=== PATIENT | female | born 1955 | race Caucasian/White ===

== ENCOUNTER → 2018-07-08 09:21 | Outpatient (CLI) | payer MEDICARE, OTHER, SELFPAY ==
--- NOTE | 2018-07-08 09:30 | XR_ITS ---
XR knee LT 4V HISTORY: Left knee pain ITS.REASON: left knee pain/ weightbearing views ORDERING PHYSICIAN: Max Garner MD PATIENT AGE: 62 years COMPARISON: 09/03/2012 FINDINGS: There are severe osteoarthritic changes of the medial compartment with loss of joint space. There is mild medial subluxation of the tibia of 4 mm. Osteophyte formation noted involving all 3 compartments. No fracture or dislocation. No lytic or blastic change. Moderate osteoarthritis involves patellofemoral joint. Minimal chondrocalcinosis of the lateral meniscus. IMPRESSION: Severe osteoarthritis of the medial compartment with moderate to severe osteoarthritis of the patellofemoral joint. Osteoarthritis has slightly progressed compared to the previous exam
== END ==
PROVIDERS: PCP Internal Medicine Adolescent Medicine; Visit Provider Orthopaedic Surgery
DX: M25.562 Pain in left knee (principal)
CPT/HCPCS: 73564

== ENCOUNTER → 2018-09-02 11:01 | Outpatient (CLI) | payer MEDICARE, OTHER, SELFPAY ==
--- NOTE | 2018-09-02 11:08 | MR_ITS ---
MR lumbar spine wo con, MR 3-d myelogram/MRCP HISTORY: LBP numbness and dill ache radiating down RT leg and hip. X6-8 Months. No trauma. ITS.REASON: LOW BACK PAIN, RADICULAR LEG PAIN ORDERING PHYSICIAN: Juliane Marte PATIENT AGE: 63 years Comparison: None TECHNIQUE: Standard multiplanar multiecho sequences are performed without contrast. 3-D MIP and myelographic images are also rendered and reviewed FINDINGS: There is normal alignment. The spinal cord ends at the L1-L2 level. There is multilevel degenerative disc disease. L1-L2: Degenerative disc disease with bulging disc and facet and ligamentum hypertrophy with bilateral lateral recess narrowing. Type I endplate changes. Broad-based left paracentral and foraminal disc protrusion versus asymmetric bulging disc noted causing left lateral recess and moderate to severe left-sided foraminal narrowing. There are are some cystic changes in the superior endplate of L2. L2-L3: Degenerative disc disease with bulging disc and facet ligamentum flavum hypertrophy with minimal right paracentral disc protrusion with mild bilateral lateral recess and foraminal narrowing. L3-L4: Degenerative disc disease with bulging disc with moderate facet and ligamentum hypertrophy with moderate bilateral lateral recess and foraminal narrowing. There is transverse narrowing of the canal from the facet ligamentum hypertrophy L4-5: Bulging disc along with facet and ligamentum flavum hypertrophy. 3 mm anterolisthesis of L4. There is moderate bilateral lateral recess and foraminal narrowing. Transverse narrowing of the canal at 10 mm. The AP dimension of the canal is 11 mm. L5-S1: Mild facet and ligamentum flavum hypertrophy. Mild bilateral lateral recess and foraminal narrowing. No extruded herniated disc evident. Mild levoscoliosis of the lumbar spine IMPRESSION: Abnormal MRI of the lumbar spine with multilevel lumbar spondylosis with degenerative disc disease along with facet and ligamentum flavum hypertrophy with foraminal lateral recess narrowing. Please see above for detailed description at each level. There is a broad-based left paracentral and foraminal disc protrusion at L1-L2 with foraminal lateral recess narrowing
== END ==
PROVIDERS: PCP Nurse Practitioner Family; Visit Provider Nurse Practitioner Family
DX: M54.5 Low back pain (principal); M54.10 Radiculopathy, site unspecified
CPT/HCPCS: 72148; 76376

== ENCOUNTER → 2019-05-12 09:37 | Outpatient (CLI) | payer MEDICARE, OTHER, SELFPAY ==
--- NOTE | 2019-05-12 09:51 | XR_ITS ---
XR DEXA axial skeleton HISTORY: ITS.REASON: POST MENOPAUSAL ORDERING PHYSICIAN: Juliane Marte APRN PATIENT AGE: 63 years COMPARISON: 09/27/2014 FINDINGS: The BMD measured at the Right femoral neck is 0.962 g/cm squared with a T score of -0.5. This is considered Normal according to the World Health Organization criteria. Fracture risk is Low. Treatment is advised. The L1 L4 density has a T score of 3.2. Lumbar spine density has increased by 2.8%. The hip density has decreased by 3.9%. IMPRESSION: Normal bone density. Low fracture risk. Suggest follow-up exam April 2021
== END ==
PROVIDERS: PCP Internal Medicine Adolescent Medicine; Visit Provider Nurse Practitioner Family
DX: Z13.820 Encounter for screening for osteoporosis (principal); Z78.0 Asymptomatic menopausal state
CPT/HCPCS: 77080

== ENCOUNTER → 2019-07-21 13:15 | Outpatient (CLI) | payer MEDICARE, OTHER, SELFPAY ==
--- NOTE | 2019-07-21 13:19 | XR_ITS ---
PROCEDURE: XR HIP LT 2-3V W/PELVIS CLINICAL INDICATION: left hip pain COMPARISON: No exams were available for comparison FINDINGS: Mild osteoarthritis. No fracture or dislocation. No lytic or blastic change. Coarse calcification is present in the central aspect of the pelvis slightly toward the left consistent with a fibroid. There are degenerative changes in the lower lumbar spine. IMPRESSION: Mild osteoarthritis Fibroid calcification Degenerate disc disease lower lumbar spine Dictated by: Sagar Goncalves MD 07/21/2019 14:20 Electronically signed by Sagar Goncalves MD in [place] 07/21/2019 14:20
--- NOTE | 2019-07-21 13:19 | XR_ITS ---
PROCEDURE: XR HIP RT 2-3V W/PELVIS CLINICAL INDICATION: right hip pain COMPARISON: XR HIP LT 2-3V W/PELVIS from 07/21/2019 FINDINGS: There are mild osteoarthritic changes of the right hip. No fracture or dislocation. No lytic or blastic the change IMPRESSION: Mild osteoarthritis Dictated by: Sagar Goncalves MD 07/21/2019 14:19 Electronically signed by Sagar Goncalves MD in [place] 07/21/2019 14:19
--- NOTE | 2019-07-21 13:19 | XR_ITS ---
PROCEDURE: XR KNEE LT 4V CLINICAL INDICATION: left knee pain COMPARISON: [id number] XR knee LT 4V from 07/08/2018 FINDINGS: No fracture or dislocation. No lytic or blastic change. There is normal mineralization. Severe osteoarthritic changes are present involving the medial compartment and patellofemoral joint with mild osteoarthritis of the lateral compartment. There is chondrocalcinosis of the lateral meniscus. Subarticular cystic changes are present at the medial aspect of the proximal tibia Other findings:None. IMPRESSION: Severe osteoarthritis slightly progressed compared to the previous exam Dictated by: Sagar Goncalves MD 07/21/2019 14:12 Electronically signed by Sagar Goncalves MD in [place] 07/21/2019 14:12
== END ==
PROVIDERS: PCP Internal Medicine Adolescent Medicine; Visit Provider Orthopaedic Surgery
DX: M25.552 Pain in left hip (principal); M25.551 Pain in right hip; M17.12 Unilateral primary osteoarthritis, left knee
CPT/HCPCS: 73502; 73564

== ENCOUNTER → 2019-08-16 14:53 | Outpatient (CLI) | payer MEDICARE, OTHER, SELFPAY ==
[2019-08-16 15:17] LABS: Basophils # 0.1 K/mm3 (0-0.2); Basophils % 0.8 % (0.1-2.0); Eosinophils # 0.1 K/mm3 (0.0-0.4); Eosinophils % 0.7 % (0.1-12.0); Hematocrit 40.3 % (37.0-47.0); Hemoglobin 12.9 g/dL (12.2-16.2); Lymphocytes # 2.5 K/mm3 (0.7-4.5); Lymphocytes % 37.1 % (10-50); Mean Corpuscular HGB Conc 32.1 g/dL (31.8-35.4); Mean Corpuscular Hemoglobin 29.7 pg (27.0-31.2); Mean Corpuscular Volume 92.5 fl (81-99); Mean Platelet Volume 7.5 fl (7.4-10.4); Monocytes # 0.4 K/mm3 (0.1-1.0); Monocytes % 5.7 % (1.7-9.3); Neutrophils # 3.8 K/mm3 (1.8-7.8); Neutrophils % 55.7 % (37.0-80.0); Platelet Count 423 K/mm3 (142-424); Red Blood Count 4.35 M/mm3 (4.20-5.40); Red Cell Distribution Width 13.3 % (11.5-17.5); White Blood Count 6.7 K/mm3 (4.8-10.8)
[2019-08-16 15:54] LABS: Blood Urea Nitrogen 13 mg/dL (7-18); Calcium 9.7 mg/dL (8.5-10.1); Carbon Dioxide 29 mmol/L (21.0-32.0); Chloride 105 mmol/L (98-107); Creatinine,Serum 0.64 mg/dL (0.55-1.02); Estimated Glomerular Filt Rate 94 ml/min (>60); GFR (African American) 114 ML/MIN (>60); Glucose 94 mg/dL (74-106); Sodium 141 mmol/L (136-145)
== END ==
PROVIDERS: Visit Provider Nurse Practitioner Family
DX: M17.12 Unilateral primary osteoarthritis, left knee (principal); I10 Essential (primary) hypertension
CPT/HCPCS: 36415; 80048; 85025

== ENCOUNTER → 2020-05-02 16:08 | Outpatient (POV) | payer MEDICARE, OTHER, SELFPAY | PROVIDERS: PCP Internal Medicine; Visit Provider Dermatology | DX: Z00.00 Encounter for general adult medical examination without abnormal findings (principal) ==

== ENCOUNTER → 2020-05-23 10:41 | Outpatient (POV) | payer MEDICARE, OTHER, SELFPAY | PROVIDERS: PCP Internal Medicine Adolescent Medicine; Visit Provider Dermatology | DX: Z00.00 Encounter for general adult medical examination without abnormal findings (principal) ==

== ENCOUNTER 2020-10-28 18:08 | Emergency (ER) | payer MEDICARE, OTHER, SELFPAY ==
[2020-10-28 18:20] VITALS: BP 148/80; PULSE 81; RESP 20; TEMP 36.8; O2SAT 97; BMI 34.3
--- NOTE | 2020-10-28 18:41 | HMH.EDUTC ---
[facility] [place] Clinical Impression: Exposure to COVID-19 virus Disposition: Home, Self-Care Condition on Discharge: Good Instructions: Preventing the Spread of Coronavirus Discharge Instructions Additional Instructions: Drink plenty of fluids. Take tylenol for pain or fever. Return if you begin to have difficulty breathing. Follow up with your regular doctor. GO TO THE ER FOR ANY WORSENING SYMPTOMS Referrals: Jose Guadalupe Jorgensen MD [Primary Care Provider] - Time of Disposition: 18:56 Medical Decision Making - Medical Records Medical records reviewed: No: I reviewed the patient's medical records. - Flavio Inquiry Pt receiving controlled substance: No Vital Signs: 10/28/20 18:20 10/28/20 18:58 Temperature 98.3 F 98.3 F Temperature Source Oral Pulse Rate 81 Pulse Rate [Left Brachial] 81 Respiratory Rate 20 20 Blood Pressure 148/80 H Blood Pressure [Right Arm] 148/80 H Blood Pressure Mean [Right Arm] 102 Blood Pressure Source [Right Arm] Automatic Cuff Blood Pressure Position Sitting Blood Pressure Position [Right Arm] Sitting 02 Sat by Pulse Oximetry 97 Oxygen Delivery Method Room Air Orders (Tests/Meds): ORDERS Category Date Time Status Covid-19 Nasal PCR ([facility]) Routine Lab 10/28/20 18:23 [place] [facility] [place] - General Stated complaint: COVID TEST Possible exposure Time Seen by Provider: 10/28/20 18:41 Mode of Arrival: Ambulatory Source of Information: Patient Limitations: No Limitations Description of Symptoms (Recalled from Triage Doc. by RN): PATIENT REQUESTING COVID TEST D/T POSSIBLE EXPOSURE; DENIES SYMPTOMS HEENT Symptoms (Recalled from RN notes): No Resp Symptoms (Recalled from RN notes): No Skin Symptoms (Recalled from RN notes): No MS Symptoms (Recalled from RN notes): No Functional Status (Recalled from RN notes): WNL - History of Present Illness Provider Complaint: She states that she was exposed to covid-19 earlier this week. She denies any symptoms so far. - Related Data Home Medications Medication Instructions Recorded Confirmed amlodipine 5 mg tablet 5 mg PO DAILY 07/08/18 08/25/19 cetirizine 10 mg capsule 10 mg PO DAILY 07/08/18 08/25/19 diclofenac sodium 75 mg 75 mg PO BID 07/08/18 08/25/19 tablet,delayed release omeprazole 20 mg capsule,delayed 20 mg PO DAILY 07/08/18 08/25/19 release spironolactone 25 mg tablet 25 mg PO DAILY 07/08/18 08/25/19 tramadol 50 mg tablet 50 mg PO Q6H 07/08/18 08/25/19 Previous Rx's Medication Instructions Recorded chlorhexidine gluconate 4 % 1 applic TOPICAL ONCE 5 Days #473 08/25/19 topical liquid ml mupirocin 2 % topical ointment 1 applic TOPICAL BID #15 g 08/25/19 estradiol 10 mcg vaginal tablet 10 mcg VAGINAL WEEKLY #4 tab 04/27/20 Allergies Allergy/AdvReac Type Severity Reaction Status Date / Time felodipine [From Plendil] Allergy nausea Verified 08/25/19 09:40 Sulfa (Sulfonamide Allergy nausea Verified 08/25/19 09:40 Antibiotics) - Worker's Comp Is this a Worker's Comp case?: No [facility] History - Hepatitis A Screen Drug use history?: No High risk sexual behaviors?: No History of sexually transmitted infection?: No Currently employed?: No Childcare worker?: No Do you have indoor plumbing?: Yes Do you have electricity?: Yes Attestation statement:: This patient has been screened for Hepatitis A risk factors. I have reviewed the patient's past medical history: Yes Medical History: Reports:: Cancer, Gastroesophageal Reflux Disease(GERD), Hyperlipidemia, Hypertension Denies:: Diabetes Mellitus Type 1, Diabetes Mellitus Type 2, Internal Pacemaker, Lung Disease, Seizures Other Medical History: Reports: Arthritis Laterality Cases: Right: Arthroscopy Knee, Bilateral: Tonsillectomy Other Surgeries: Yes: Colonoscopy, Other. No: Pacemaker Amputation: No Fractures: No - Social History Smoking Status: Never smoker Alcohol Intake: never Substance Use Type: denies use Occ
[2020-10-28 18:58] VITALS: BP 148/80; PULSE 81; RESP 20; TEMP 36.8; O2SAT 97
== END 2020-10-28 19:00 | disposition home or self-care (01) ==
PROVIDERS: Emergency Provider Nurse Practitioner Family; PCP Internal Medicine Adolescent Medicine
DX: Z20.822 Contact with and (suspected) exposure to COVID-19 (principal); K21.9 Gastro-esophageal reflux disease without esophagitis; E78.5 Hyperlipidemia, unspecified; I10 Essential (primary) hypertension; Z79.899 Other long term (current) drug therapy
CPT/HCPCS: G0463; 99202; U0003

== ENCOUNTER → 2021-01-15 09:49 | Outpatient (CLI) | payer MEDICARE, OTHER, SELFPAY ==
--- NOTE | 2021-01-15 09:53 | US_ITS ---
PROCEDURE: US CHEST CLINICAL INDICATION: LT CHEST WALL NODULE COMPARISON: No exams were available for comparison FINDINGS: There is a well-circumscribed 1 x 0.6 cm oval nodule in the left infraclavicular area corresponding to the palpable abnormality. This has mixed echogenicity. Blood flow is present within this region. This may be related to a lymph node. IMPRESSION: 1 cm nodule in the infraclavicular region on the left. The nodule appears solid and does demonstrate blood flow and is well-circumscribed and may be due to a lymph node. Follow-up suggested to confirm stability. Dictated by: Sagar Goncalves MD 01/16/2021 07:22 Sagar Goncalves MD in [place] 01/16/2021 07:22
== END ==
PROVIDERS: PCP Internal Medicine Adolescent Medicine; Visit Provider Nurse Practitioner Family
DX: R22.2 Localized swelling, mass and lump, trunk (principal)
CPT/HCPCS: 76604

== ENCOUNTER → 2021-03-06 10:24 | Outpatient (CLI) | payer MEDICARE, OTHER, SELFPAY ==
--- NOTE | 2021-03-06 10:28 | XR_ITS ---
PROCEDURE: XR HIP LT 2-3V W/PELVIS CLINICAL INDICATION: left hip pain COMPARISON: CR XR HIP LT 2-3V W/PELVIS from 07/21/2019 FINDINGS: Minor subchondral sclerosis of the acetabulum is noted. Otherwise the left hip joint is unremarkable without evidence of acute fractures or dislocations. Bone density is normal. Degenerative changes of the visualized lumbar spine. Calcified fibroid is noted in the left hemipelvis. No significant soft tissue abnormality. IMPRESSION: Minor degenerative changes of the left hip joint. No acute abnormality. Dictated by: Claudia Garner 03/06/2021 13:16 Claudia Garner in [place] 03/06/2021 13:16
--- NOTE | 2021-03-06 10:28 | XR_ITS ---
PROCEDURE: XR KNEE LT 4V CLINICAL INDICATION: left knee pain; WITH TEMPLATES FOR TOTAL KNEE COMPARISON: CR [id number] XR knee LT 4V from 07/08/2018 CR XR KNEE LT 4V from 07/21/2019 FINDINGS: Severe degenerative changes with [id number] appearance, subchondral sclerosis and cystic changes with bone remodeling in the medial compartment. Chondrocalcinosis is noted in the lateral compartment noted. Tricompartmental osteophyte formation. No suprapatellar joint effusion. No significant soft tissue abnormality. IMPRESSION: Tricompartmental degenerative changes, worse in the medial compartment Dictated by: Claudia Garner 03/06/2021 13:15 Claudia Garner in [place] 03/06/2021 13:15
--- NOTE | 2021-03-06 10:28 | XR_ITS ---
PROCEDURE: XR HIP RT 2-3V W/PELVIS CLINICAL INDICATION: right hip pain COMPARISON: CR XR HIP LT 2-3V W/PELVIS from 07/21/2019 FINDINGS: Minor degenerative changes of the bilateral hip joints. No acute fractures or dislocations. Bone density is normal. Degenerative changes of the visualized lumbar spine is noted with minor levoscoliosis. IMPRESSION: No acute fractures or dislocations. Minor degenerative changes of the bilateral hip joints. Dictated by: Claudia Garner 03/06/2021 12:34 Claudia Garner in [place] 03/06/2021 12:34
--- NOTE | 2021-03-06 14:51 | SW/DCPLANNER ---
RECEIVED A CALL THIS MORNING FROM THE SURGICAL SUITE STATING THIS PATIENT IS COMING IN FOR KNEE SURGERY ON THE February AND SHE IS A MEDICARE PATIENT.. I DID CALL PATIENT TODAY AND LEFT HER A LENGTHY VOICE MESSAGE ABOUT THE PROCESS ONCE SHE HAS HER SURGERY, TOLD HER I WOULD BE AVAILABLE TO ANSWER ANY QUESTIONS SHE MAY HAVE, ALSO MENTIONED THAT KNEE SURGERY IS TYPICALLY OUT PATIENT BUT IF SHE NEEDS MORE INFORMATION ABOUT HER DISCHARGE PLAN I WOULD BE AVAILABLE TO ANSWER HER QUESTIONS.. WAITING ON A CALL BACK...
== END ==
PROVIDERS: PCP Internal Medicine Adolescent Medicine; Visit Provider Orthopaedic Surgery
DX: M25.551 Pain in right hip (principal); M25.552 Pain in left hip; M17.12 Unilateral primary osteoarthritis, left knee
CPT/HCPCS: 73502; 73564

== ENCOUNTER → 2021-03-12 11:02 | Outpatient (CLI) | payer MEDICARE, OTHER, SELFPAY ==
--- NOTE | 2021-03-12 11:07 | XR_ITS ---
PROCEDURE: XR CHEST 2V CLINICAL HISTORY: HX OF HIGH BLOOD PRESSURE COMPARISON: CR CXR CHEST(2 VIEWS-NOT PORTABLE) from 05/07/2013 FINDINGS: The cardiomediastinal silhouette and pulmonary vascularity are within normal limits. There is eventration of the hemidiaphragm anteriorly on right. No lobar consolidation or collapse. Surgical clips in the right axilla. Degenerative changes thoracic spine and upper lumbar spine. IMPRESSION: No acute findings. Dictated by: Sagar Goncalves MD 03/12/2021 11:22 Sagar Goncalves MD in [place] 03/12/2021 11:22
[2021-03-12 11:26] LABS: Microscopic, Urine URINE MICROSCOPIC (MICROSCOPIC)
[2021-03-12 11:56] LABS: Basophils # 0.1 K/mm3 (0-0.2); Basophils % 0.9 % (0.1-2.0); Eosinophils # 0.1 K/mm3 (0.0-0.4); Eosinophils % 1.1 % (0.1-12.0); Hematocrit 41.8 % (37.0-47.0); Hemoglobin 12.7 g/dL (12.2-16.2); Lymphocytes # 2.4 K/mm3 (0.7-4.5); Lymphocytes % 37.6 % (10-50); Mean Corpuscular HGB Conc 30.3 g/dL (31.8-35.4); Mean Corpuscular Hemoglobin 27.3 pg (27.0-31.2); Mean Platelet Volume 6.9 fl (7.4-10.4); Monocytes # 0.4 K/mm3 (0.1-1.0); Monocytes % 6.1 % (1.7-9.3); Neutrophils # 3.4 K/mm3 (1.8-7.8); Neutrophils % 54.3 % (37.0-80.0); Platelet Count 385 K/mm3 (142-424); Red Blood Count 4.64 M/mm3 (4.20-5.40); Red Cell Distribution Width 13.9 % (11.5-17.5); White Blood Count 6.3 K/mm3 (4.8-10.8)
[2021-03-12 11:59] LABS: Appearance,Urine CLEAR (Clear); Bilirubin,Urine Negative (Negative); Blood, Urine 1+ (Negative); Color,Urine YELLOW (Yellow); Glucose,Urine (UA) Negative (Negative); Ketones,Urine Negative (Negative); Leukocyte Esterase,Urine Negative (Negative); Nitrate,Urine Negative (Negative); PH,Urine 6.5 (5.0-8.5); Protein,Urine Negative (Negative); Urobilinogen,Urine 0.2 EU/dl (0.2)
[2021-03-12 12:31] LABS: Alanine Aminotransferase 14 U/L (12-78); Albumin Level 4.9 g/dl (3.5-5.0); Albumin/Globulin Ratio 1.5 (1.1-1.8); Alkaline Phosphatase 125 U/L (38-126); Anion Gap 9.5 mEq/L (5-15); Aspartate Amino Transferase 26 U/L (14-36); Bilirubin,Total 0.8 mg/dl (0.2-1.3); Blood Urea Nitrogen 14 mg/dl (7-17); Calcium 10.5 mg/dl (8.4-10.2); Carbon Dioxide 31 mmol/L (22.0-30.0); Chloride 104 mmol/L (98-107); Estimated Glomerular Filt Rate 84 ml/min (>60); GFR (African American) 102 ML/MIN (>60); Globulin 3.2 g/dL (1.3-3.2); Glucose 93 mg/dl (74-100); Potassium 4.5 mmoL/L (3.5-5.1); Sodium 140 mmol/L (136-145); Total Protein,Serum 8.1 g/dl (6.3-8.2)
[2021-03-12 12:50] LABS: WBC,Urine TNTC #/hpf (0-3)
== END ==
PROVIDERS: PCP Nurse Practitioner Family; Visit Provider Nurse Practitioner Family
DX: Z01.818 Encounter for other preprocedural examination (principal); M17.12 Unilateral primary osteoarthritis, left knee; R82.90 Unspecified abnormal findings in urine
CPT/HCPCS: 36415; 71046; 80053; 81001; 85025; 87086

== ENCOUNTER → 2021-03-17 11:29 | Outpatient (CLI) | payer MEDICARE, OTHER, SELFPAY | PROVIDERS: Visit Provider Orthopaedic Surgery | DX: Z01.818 Encounter for other preprocedural examination (principal); Z11.52 Encounter for screening for COVID-19; M25.562 Pain in left knee | CPT/HCPCS: 36415; 86850; U0003 ==

== ENCOUNTER 2021-03-19 10:20 | Observation (INO) | payer MEDICARE, OTHER, SELFPAY ==
[2021-03-15 11:21] VITALS: BMI 36.1
[2021-03-19] VITALS (23 sets, daily range): BP systolic 113–135; BP diastolic 44–74; PULSE 63–81; RESP 12–20; TEMP 36.3–42.7; O2SAT 92–99
--- NOTE | 2021-03-19 13:06 | P.PN_ITS ---
[facility] Anesthesia Checklist - Structural Data Admitted From: Home Planned Operative Procedure/s: l tka Consent for Planned Operative Procedure(s) Verified: Yes - Additional verifications Anesthesia Reactions: No Hx Blood Transfusions: No Blood Transfusion Reaction: No - Airway Assessment C-Spine Mobility Assessed: Yes TMJ Mobility Assessed: Yes Dentition: Good Dentition - Neurological Assessment Level of Consciousness: Awake, Alert, Appropriate - Anesthesia Plan Anesthesia Risk discussed: Yes Anesthesia Plan: Verified ASA Class: II Anesthesia Type: MAC w/Spinal [facility] History I have reviewed the patient's past medical history: Yes Medical History: Reports:: Cancer (right breast), Gastroesophageal Reflux Disease(GERD), Hyperlipidemia, Hypertension Denies:: Diabetes Mellitus Type 1, Diabetes Mellitus Type 2, Internal Pacemaker, Lung Disease, MRSA, Seizures *Have you ever received a pneumonia vaccine?: Yes *Have you received a flu vaccine this season?: Yes Other Medical History: Reports: Arthritis. Denies: Blood Transfusion Reaction Anesthesia experience/problems:: none Laterality Cases: Right: Arthroscopy Knee, Lumpectomy, Bilateral: Tonsillectomy Other Surgeries: Yes: No Previous Surgery, Cancer Surgery, Colonoscopy, Other. No: Pacemaker Amputation: No Fractures: No - *Social History Last grade of school completed: High school graduate Smoking Status: Never smoker Alcohol Intake: current Alcohol Intake Frequency:: holidays/special occasions only Substance Use Type: denies use *Occupational Status:: other Housing: house Household Members: spouse *Travel in the last 8 weeks: None Family Hx:: Cancer
--- NOTE | 2021-03-19 16:07 | P.PN_ITS ---
[facility] Anesthesia Record Part I Intake, IV Amount: 2,600 Estimated blood loss (mL): 100 Urine output (mL): 350 Blood Pressure: 135/68 SaO2: 96 Pulse Rate: 80 Respiratory Rate: 12 Temperature: 98.4 F Patient is:: Awake, Stable Stable to PACU at:: 16:00
--- NOTE | 2021-03-19 16:11 | XR_ITS ---
PROCEDURE: XR KNEE LT 2V CLINICAL INDICATION: surgery Status post knee replacement COMPARISON: CR [id number] XR knee LT 4V from 07/08/2018 CR XR KNEE LT 4V from 07/21/2019 CR XR KNEE LT 4V from 03/06/2021 FINDINGS: Follow-up total knee replacement. Good alignment. Postsurgical gas is noted. Other findings:None. IMPRESSION: Good alignment status post total knee replacement Dictated by: Sagar Goncalves MD 03/19/2021 16:37 Sagar Goncalves MD in [place] 03/19/2021 16:37
[2021-03-19 16:53] LABS: Adenovirus,PCR Not Detected (NotDetected); Bordetella Pertussis Not Detected (NotDetected); Chlamydophila Pneumoniae, PCR Not Detected (NotDetected); Coronavirus 19, PCR Not Detected (NotDetected); Coronavirus 229E Not Detected (NotDetected); Coronavirus NL63 Not Detected (NotDetected); Coronavirus OC43 Not Detected (NotDetected); Coronovirus HKU1,PCR Not Detected (NotDetected); Human Metapneumovirus Not Detected (NotDetected); Influenza A, PCR Not Detected (NotDetected); Influenza AH1, 2009 Not Detected (NotDetected); Influenza AH1, PCR Not Detected (NotDetected); Influenza AH3,PCR Not Detected (NotDetected); Influenza B, PCR Not Detected (NotDetected); Mycoplasma Pneumoniae, PCR Not Detected (NotDetected); Parainfluenza 1, PCR Not Detected (NotDetected); Parainfluenza 2, PCR Not Detected (NotDetected); Parainfluenza 3, PCR Not Detected (NotDetected); Parainfluenza 4, PCR Not Detected (NotDetected); Respiratory Syncytial Virus Not Detected (NotDetected); Rhinovirus/Enterovirus Not Detected (NotDetected)
--- NOTE | 2021-03-19 16:56 | HMH.OPNOTE ---
Date of procedure: 03/19/21 Pre-op Diagnosis:: Advanced degenerative joint disease, left knee Post-op Diagnosis:: Same Procedure performed:: Uncemented total knee arthroplasty, left Surgeon:: Max Garner MD [facility] Representative(s):: Susan Jonas HEEL FINISHER:: Buzz Grant Anesthesia: spinal Estimated blood loss (mL): 20 Clinical Note:: Patient is a 65-year-old female with end-stage tricompartmental osteoarthritis and severe [id number] changes over the medial compartment with a progressive varus deformity and flexion contracture of her left knee presented with unremitting severe pain not relieved by conservative management. The arthritic process and pain are advanced to the point that it is becoming a hazard for the patient with risk of falling and injuring herself. A total knee arthroplasty is indicated to relieve the pain, improve function, reduce the risk of falls and improve quality of life. She previously had a successful total knee arthroplasty on the right side about 10 years ago. She has history of hypertension, hyperlipidemia, GERD and arthritis. Please refer to my office note for full details. Operative findings:: As noted on the preoperative evaluation, the knee joint has a fixed flexion of 10? with 10 degrees of fixed varus deformity. As seen on the x-rays, there is advanced tricompartmental degenerative arthritis with the medial compartment showing marked degenerative changes with significant wear of the medial tibial plateau. The menisci and cruciate ligaments are markedly degenerate. There is extensive osteophyte formation over all 3 compartments. Bone quality is good. Operative note:: On the day of the surgery the patient and her sister were met in the preoperative area. I have again reviewed the clinical and x-ray findings and discussed the diagnosis, natural history and management options including both nonsurgical and surgical. Patient has end-stage degenerative arthritis of the left knee and has failed to respond satisfactorily to appropriate conservative management in the past and has opted for a total knee arthroplasty. The left knee joint is stiff and painful, and is limiting her mobility, ADLs and quality of life. Also the knee gives out and patient is at risk of falls resulting in fractures. I have again discussed the details of the procedure, risks and benefits and alternatives in detail. The complications discussed include but are not limited to infection, injury to nerves and blood vessels including injury to popliteal artery, injury to tendons and ligaments, DVT and PE, fat embolism, intraoperative fracture, limb length inequality, patella fracture, patellofemoral instability, patellar clunk syndrome, quadriceps and patellar tendon rupture, implant failure, component loosening, periprosthetic femur and tibia fractures, stiffness/arthrofibrosis, limp, incomplete relief of pain, incomplete functional recovery, likely need for further surgery in future including revision and anesthetic complications including heart attack, stroke and even . We also discussed about the likely need for blood transfusion and transfusion reactions. We discussed how any of these events can be devastating. We have discussed nonsurgical alternatives as well. Patient understands and wishes to proceed with a left total knee arthroplasty as planned and I believe that he is fully informed as to the risks, benefits, and alternatives including nonsurgical alternatives. We also discussed the postoperative course including the rehab and physical therapy required. Patient previously had a right total knee arthroplasty and he is aware of the procedure and postoperative recovery. A physical examination was performed and documented. Patient understood the risks, agreed to proceed with surgery and no guarantees or assurances were given or implied. The limb was appropriately marked and initialed by me. The patient was then brought to the operating room and a spinal anesthe
--- NOTE | 2021-03-19 17:16 | HMH.ORTHHP ---
*Admission Date: 03/19/21 *Reason for consult:: Osteoarthritis, left knee *History of present illness: farzana is 65 year old female admitted to hospital today after an uneventful left total knee arthroplasty. She has had chronic left knee pain, secondary to advanced degenerative arthritis, which has failed to respond satisfactorily to nonsurgical management. Following evaluation in the office, patient elected to proceed with a total knee arthroplasty. X-rays of her knee joint showed tricompartmental degenerative changes with [id number] appearance over the medial compartment. She reports significant left knee pain. The pain increases with standing, weightbearing or walking for any length of of time, twisting and turning aggravates her pain. She says she can hardly walk few yards without pain. She previously was under care of Dr. Sorensen and had a right total knee arthroplasty. She had multiple intra-articular injections to her left knee. I have seen her in the office about a year and half ago at which time she was scheduled for total knee arthroplasty but she did not go through with the surgery at that time. A total knee arthroplasty is indicated to reduce the risk of falls, improve her pain and mobility and quality of life. The surgical and nonsurgical alternatives were discussed in detail with the patient as well as the risks and benefits of the surgery. Please refer to my office note for full details. [facility] History I have reviewed the patient's past medical history: Yes Medical History: Reports:: Cancer (right breast), Gastroesophageal Reflux Disease(GERD), Hyperlipidemia, Hypertension Denies:: Diabetes Mellitus Type 1, Diabetes Mellitus Type 2, Internal Pacemaker, Lung Disease, MRSA, Seizures *Have you ever received a pneumonia vaccine?: Yes *Have you received a flu vaccine this season?: Yes Other Medical History: Reports: Arthritis. Denies: Blood Transfusion Reaction Anesthesia experience/problems:: none Laterality Cases: Right: Arthroscopy Knee, Lumpectomy, Bilateral: Tonsillectomy Other Surgeries: Yes: No Previous Surgery, Cancer Surgery, Colonoscopy, Other. No: Pacemaker Amputation: No Fractures: No - *Social History Last grade of school completed: High school graduate Smoking Status: Never smoker Alcohol Intake: current Alcohol Intake Frequency:: holidays/special occasions only Substance Use Type: denies use *Occupational Status:: other Housing: house Household Members: spouse *Travel in the last 8 weeks: None Family Hx:: Cancer Review of Systems - Review of Systems Review of systems:: pertinent systems reviewed and negative unless documented below - Constitutional Denies chills, Denies fever(s) - Eyes Denies change in vision - ENT Denies abnormal hearing, Denies difficulty swallowing - *Cardiovascular Denies chest pain, Denies shortness of breath - *Respiratory Denies chest congestion, Denies shortness of breath - *Gastrointestinal Denies abdominal pain, Denies change in bowel habits - *Musculoskeletal Reports abnormal walking, Reports joint pain, Reports deformity, Reports joint swelling, Reports limited joint movement - *Neurologic Reports abnormal walking, Denies seizure-like activity, Denies tingling/numbness/burning sensations, Denies seizure-like activity - Endocrine Denies cold intolerance, Denies heat intolerance - Hematologic/Lymphatic Denies easy bleeding, Denies easy bruising Meds Home Medications Medication Instructions Recorded Confirmed Type amlodipine 5 mg tablet 5 mg PO DAILY 07/08/18 03/19/21 History cetirizine 10 mg capsule 10 mg PO DAILY 07/08/18 03/19/21 History diclofenac sodium 75 mg 75 mg PO BID 07/08/18 03/19/21 History tablet,delayed release omeprazole 20 mg capsule,delayed 20 mg PO DAILY 07/08/18 03/19/21 History release spironolactone 25 mg tablet 25 mg PO DAILY 07/08/18 03/19/21 History tramadol 50 mg tablet 50 mg PO Q6H 07/08/18 03/19/21 History estradiol 10
--- NOTE | 2021-03-19 18:17 | INFXCTL.NOTE ---
at to see pt (rounding). Knee immobilizer removed per MD. Polar pack remains in place. Instructed pt that she only needs to put knee immobilizer on while up out of bed and only until she is able to left her leg. Pt verbalizes understanding.
[2021-03-20] VITALS (7 sets, daily range): BP systolic 116–152; BP diastolic 62–80; PULSE 71–95; RESP 16–18; TEMP 36.1–37; O2SAT 90–98
--- NOTE | 2021-03-20 04:56 | PC.NURSE ---
NO ACUTE CHANGES IN PREVIOUS ASSESSMENT.LUNGS CLEAR,RESP.EVEN AND UNLABORED.NORMAL BOWEL X4 QUADS,LEFT LEG REMAINS ON PILLOW AT THE HEEL HAMMER WANTS.POLAR PACK IN PLACE ON LEFT KNEE.SONI CATH PATENT AND DRAINING CLEAR YELLOW URINE.V/S STABLE,PT HAS BEEN MEDICATED SEVERAL TIMES WILL CONTINUE TO MONITOR
[2021-03-20 06:35] LABS: Basophils % 0.2 % (0.1-2.0); Eosinophils % 0.1 % (0.1-12.0); Lymphocytes # 1.6 K/mm3 (0.7-4.5); Lymphocytes % 19.9 % (10-50); Mean Corpuscular HGB Conc 33.3 g/dL (31.8-35.4); Mean Corpuscular Hemoglobin 28.7 pg (27.0-31.2); Mean Platelet Volume 7.7 fl (7.4-10.4); Monocytes # 0.7 K/mm3 (0.1-1.0); Monocytes % 8.2 % (1.7-9.3); Neutrophils # 5.9 K/mm3 (1.8-7.8); Neutrophils % 71.6 % (37.0-80.0); Platelet Count 281 K/mm3 (142-424); Red Blood Count 3.49 M/mm3 (4.20-5.40); Red Cell Distribution Width 14.1 % (11.5-17.5); White Blood Count 8.2 K/mm3 (4.8-10.8)
[2021-03-20 06:42] LABS: Chloride 99 mmol/L (98-107); Potassium 3.8 mmoL/L (3.5-5.1); Sodium 131 mmol/L (136-145)
[2021-03-20 06:45] LABS: Anion Gap 9.8 mEq/L (5-15); Blood Urea Nitrogen 6 mg/dl (7-17); Carbon Dioxide 26 mmol/L (22.0-30.0); Creatinine Clearance Estimated 73 mL/min (50-200); Estimated Glomerular Filt Rate 161 ml/min (>60); GFR (African American) 194 ML/MIN (>60)
[2021-03-20 06:46] LABS: Glucose 111 mg/dl (74-100)
--- NOTE | 2021-03-20 07:23 | P.PN_ITS ---
[facility] Anesthesia Record Part II Discharge Time: 16:49 Destination: Surgical Day Care (OP Surgery) PACU nurse assessment reviewed?: Yes Patient Condition:: Good Anesthesia Complications:: None Swallowing reflex intact?: Yes Cyanosis?: No Blood Pressure: 116/62 Pulse Rate: 71 Temperature: 97.3 F Mental Status: Alert & Oriented Pain level:: 0 Nausea and/or vomitting:: None Intake, IV Amount: 2,000
--- NOTE | 2021-03-20 08:10 | PC.NURSE ---
Polar Pack refilled with ice / water at this time. Pt's left leg remains elevated (straight) with pillow. 2+edema noted below dressing / gopi wrap on incision. Edema on calf as well as foot. +pulses noted, pt able to wiggle / move foot, +sensation noted, leg / foot warm and pink.
--- NOTE | 2021-03-20 09:19 | HMH.PHAVTE ---
[facility] Pharmacy VTE Monitoring - Patient Demographics Admission date: 03/20/21 Report Date: 03/20/21 Time: 09:19 Allergies/Adverse Reactions: Patient Allergies felodipine [From Plendil] Allergy (Verified 03/16/21 13:58) nausea Sulfa (Sulfonamide Antibiotics) Allergy (Verified 03/16/21 13:58) nausea Height: 1.5 m Weight: 81.193 kg Patient Problems: Current Active Problems Primary osteoarthritis of left knee (Acute) Status post total knee replacement, left (Acute) Hypertension (Acute) Hyperlipidemia (Acute) GERD (gastroesophageal reflux disease) (Acute) - VTE Risk Labs: VTE Related Lab Results Hgb 10.0 g/dL (12.2-16.2) L 03/20/21 06:09 Hct 30.0 % (37.0-47.0) L 03/20/21 06:09 Plt Count 281 K/mm3 (142-424) 03/20/21 06:09 BUN 6 mg/dl (7-17) L 03/20/21 06:09 Creatinine 0.40 mg/dl (0.52-1.04) L 03/20/21 06:09 Estimated Creat Clear 73 mL/min (50-200) 03/20/21 06:09 Was VTE Risk Assessment Performed: Yes VTE Score: 5 VTE Risk Level: Low Risk Clinical Trial Participant: No - Prophylaxis VTE Prophylaxis Ordered?: Yes Types of VTE Prophylaxis: IPCS Thigh High, Pharmacological (XARELTO)
--- NOTE | 2021-03-20 09:30 | P.CONPHA_ITS ---
[facility] Pharmacy VTE Monitoring - Patient Demographics Admission date: 03/19/21 Report Date: 03/20/21 Time: 09:30 Allergies/Adverse Reactions: Patient Allergies felodipine [From Plendil] Allergy (Verified 03/16/21 13:58) nausea Sulfa (Sulfonamide Antibiotics) Allergy (Verified 03/16/21 13:58) nausea Height: 1.5 m Weight: 81.193 kg Patient Problems: Current Active Problems Primary osteoarthritis of left knee (Acute) Status post total knee replacement, left (Acute) Hypertension (Acute) Hyperlipidemia (Acute) GERD (gastroesophageal reflux disease) (Acute) - VTE Risk Labs: VTE Related Lab Results Hgb 10.0 g/dL (12.2-16.2) L 03/20/21 06:09 Hct 30.0 % (37.0-47.0) L 03/20/21 06:09 Plt Count 281 K/mm3 (142-424) 03/20/21 06:09 BUN 6 mg/dl (7-17) L 03/20/21 06:09 Creatinine 0.40 mg/dl (0.52-1.04) L 03/20/21 06:09 Estimated Creat Clear 73 mL/min (50-200) 03/20/21 06:09 Was VTE Risk Assessment Performed: Yes VTE Score: 5 VTE Risk Level: Low Risk Clinical Trial Participant: No - Prophylaxis VTE Prophylaxis Ordered?: Yes Types of VTE Prophylaxis: IPCS Thigh High, Pharmacological Location of Applied Device: Right Leg Pharmacologic Type: Other (XARELTO)
--- NOTE | 2021-03-20 09:30 | PC.NURSE ---
Verbal order for Dilaudid .5-1mg IV be given for pt's pain per Buzz Grant CRNA r/t 2 of pt's family members being concerned about Morphine causing pt's nausea / vomiting. Repeated / Verified.
--- NOTE | 2021-03-20 10:10 | PC.NURSE ---
Pt transferred to room 201 (Medsur Unit). Report given to PAMELLA Alford.
--- NOTE | 2021-03-20 11:51 | SW/DCPLANNER ---
Addendum entered by Miesha Kemp 03/22/21 11:40: Carol with [facility] has stated that services will begin this week for this patient. Addendum entered by Miesha Kemp 03/21/21 10:12: This patient now prefers to discharge home with [facility] at time of discharge. I will continue to follow up with patient/family and Dr Garner until patient is medically stable for discharge. Original Note: I spoke with this patient and patients sister this AM regarding discharge plans. Patient is interested in placement ([place]): due to insurance and inpatient status patient would be required private pay at placement. Patient has stated that she would not be able to afford private pay. I have explained option of discharging home with home health services and could provide a private sitters list. Patient would prefer to use [facility] for home health services. Patient has all DME needed at home: walker, rollator, cane, bedside commode, shower chair. I will continue to follow up with this patient/family until medically stable for discharge. Patient has not participated with therapy at this time due to nausea/vomiting. I have informed Dr Garner of discharge plans.
--- NOTE | 2021-03-20 13:06 | HMH.ORTHPN ---
Subjective Date: 03/20/21 Time: 12:00 Principal diagnosis: S/p total knee arthroplasty, left Interval history: Patient is status post LEFT total knee arthroplasty, post op day #1. Patient is lying down on the bed and says she has been having a lot of nausea and vomited few times. This apparently started this morning after IV morphine. She says she did receive morphine overnight which did not cause any problems. However, she reports having intermittent knee pain and sleep disturbance throughout the night. IV Dilaudid was ordered by the tech brazer tester this morning in place of IV morphine. However, patient says this caused her severe drowsiness and says she is still feeling weak. She could not participate in physical therapy this morning because of the nausea and vomiting. No history of any cough, chest pain, shortness of breath or palpitations. Patient says she is not eating and drinking well due to the nausea and vomiting. No history of any distal tingling or numbness. PN: Obj Ex Vital signs: Temp Pulse Resp BP Pulse Ox 97.0 F L 95 H 18 152/76 H 90 L 03/20/21 10:45 03/20/21 10:45 03/20/21 10:45 03/20/21 10:45 03/20/21 10:45 Narrative: Laboratory Results - last 24 hr 03/19/21 16:44: Chlamy pneumoniae PCR Not detected, Adenovirus (PCR) Not detected, B. pertussis DNA (PCR) Not detected, Coronavirus OC43 (PCR) Not detected, Coronavirus HKU1 (PCR) Not detected, Coronavirus 229E (PCR) Not detected, SARS-CoV-2 (PCR) Not detected, Coronavirus NL63 (PCR) Not detected, Human Metapneumovir PCR Not detected, Influenza A (H1) PCR Not detected, Influ A (H1N1/09) PCR Not detected, Influenza A (H3) PCR Not detected, Influenza Type A (PCR) Not detected, Influenza Type B (PCR) Not detected, M. pneumoniae (PCR) Not detected, Parainfluenza 1 (PCR) Not detected, Parainfluenza 2 (PCR) Not detected, Parainfluenza 3 (PCR) Not detected, Parainfluenza 4 (PCR) Not detected, RSV (PCR) Not detected, Entero/Rhino (PCR) Not detected 03/20/21 06:09: WBC 8.2, RBC 3.49 L, Hgb 10.0 L, Hct 30.0 L, MCV 86.0, MCH 28.7, MCHC 33.3, RDW 14.1, Plt Count 281, MPV 7.7, Neut % (Auto) 71.6, Lymph % (Auto) 19.9, Eaton % (Auto) 8.2, Eos % (Auto) 0.1, Baso % (Auto) 0.2, Neut # (Auto) 5.9, Lymph # (Auto) 1.6, Eaton # (Auto) 0.7, Eos # (Auto) 0.0, Baso # (Auto) 0.0 03/20/21 06:09: Sodium 131 L, Potassium 3.8, Chloride 99, Carbon Dioxide 26, Anion Gap 9.8, BUN 6 L, Creatinine 0.40 L, Estimated Creat Clear 73, Estimated GFR 161, Est GFR ( Amer) 194, Glucose 111 H, Calcium 8.0 L Intake & Output 03/18/21 03/19/21 03/20/21 03/21/21 11:59 11:59 11:59 11:59 Intake Total 4600 / 4600 240 / 240 Output Total 775 / 775 Balance 3825 / 3825 240 / 240 Exam General appearance: alert, active, awake, no acute distress Cardiovascular: regular rate & rhythm, normal peripheral pulses Respiratory: No respiratory distress noted, speaks in full sentences ABD: soft and non tender Neuro: alert, awake, oriented x 3 Psych: Appropriate mood and affect for her situation Genitourinary: Catheter in situ. On examination of the lower extremities the limb lengths are equal. Thigh and calf are soft and nontender. On examination of the left knee the dressings are clean, dry and intact. Leg compartments are soft. Distal pulses are 2+. Capillary refill is brisk. There is edema of the lower leg and foot and ankle. As the Hossein bandage appeared to be somewhat tight, I have changed the dressings and cover the incision with bordered gauze. The incision looks clean and healthy; there is no bleeding or soakage of the dressings. She is actively moving the ankle, foot and the toes. Distal pulses are 2+. Distal sensation is intact to light touch throughout. No motor deficits noted distally. She has good quadriceps activation and is able to lift the leg few inches off the bed on her own. - Urinary Catheter Management Toney Cath placed during this visit: no Progress Note: A&P (1) Primary osteoarthr
--- NOTE | 2021-03-20 13:40 | HMH.PTEV ---
Physical Therapy Evaluation Rehab PT IP Evaluation Start: 03/19/21 17:01 Freq: ONCE Status: Active Protocol: Document 03/20/21 13:34 PWRAYNE (Rec: 03/20/21 13:40 PWRAYNE [id number]) Subjective/History History History This is the initial IP PT evaluation for Lizabeth Pak. Pt is a 65 y/o female admitted to [facility] s/p L TKA. Pt has had R TKA in past. Subjective Subjective c/o decreased nausea but still has severe pain - reports legs feels like weight Rehab PT IP Eval Objective Appearance Patient Behavior Appropriate,Cooperative Patient Orientation Person,Place,Time Difficulty following instructions none Speech Pattern Clear,Appropriate Ambulation Patient Able to Ambulate Yes Ambulation Observation IP General Gait Pattern Observation Antalgic Gait,Shuffling Step, Decrease Weight Bear (L) Ambulation Distance (feet) 5 Ambulation Assistive Device Rolling Walker Ambulation Ability Contact Guard/Hand Hold Balance Ability to Arise Able, uses arms to help Sitting Balance Steady, safe Standing Balance Steady, wide stance Dynamic Sitting Balance Ability Good Dynamic Standing Balance Ability Poor Transfers Bed Transfer Ability Supervision/Stand by Chair Transfer Ability Supervision/Stand by Sit to Stand Bed Transfer Ability Supervision/Stand by,Contact Guard/Hand Hold Sit to Stand Chair Transfer Ability Supervision/Stand by,Contact Guard/Hand Hold Rehab PT IP prob,goals,plan Problems Date of Evaluation: 03/20/21 PT IP Problems Transfers,Gait,Balance,Safety Rehab Potential Rehab Potential Good Equipment Needs Assistive Devices Rolling / Wheeled Walker Plan PT Intervention Plan Transfers,Gait,Balance,Self care,Safety,Therapeutic Exercise PT Plan Frequency BID Duration LOS Discharge Goals Bed Transfer Ability Independent Sit to Stand Chair Transfer Ability Supervision/Stand by Ambulation Assistive Device Rolling Walker Ambulation Distance (feet) 50 Discharge Plan PT Discharge Plan Pt would benefit from short term skilled therapy at [facility] to allow return to [place]. If pt is unwilling to go to rehab hospital like [facility] or
--- NOTE | 2021-03-20 13:42 | HMH.OTEV ---
OT Inpatient Evaluation Rehab OT IP Evaluation Start: 03/19/21 17:01 Freq: ONCE Status: Complete Protocol: Document 03/20/21 13:37 [facility] (Rec: 03/20/21 13:42 [facility] [id number]) Rehab OT IP Assessment Subjective History Pt oriented x 3 on arrival. Pt agreeable to engage in therapy evaluation. Pt was diagnosed with L knee osteoarthritis and required a total knee arthroplasty on . Pt has a past medical history of CA, GERD, Hyperlipidemia, and HTN. Pt reports prior to surgery she lived at home alone and was independent with all ADLs and IADLs. Pt also still drove. Subjective I have been sick to my stomach. Objective Patient Orientation Person,Place,Birthday Upper Extremity Gross ROM WFL Bed Mobility bed mobility-scooting,bed mobility - supine/sit,bed mobility - rolling Assist Level Supervision/Stand by Transfer Training Sit/Stand Transfer Assist Level Contact Guard/Hand Hold Chair Transfer Ability Contact Guard/Hand Hold Chair Transfer Technique Sit to/from Ambulatory Chair Transfer Assistive Devices Rolling Walker Rehab OT IP prob,goals,plan Problems Date of Evaluation: 03/20/21 OT IP Problems Bed Mobility,Transfers,Gait, Balance,Self care,Safety Rehab Potential Rehab Potential Good Equipment Needs Assistive Devices Rolling / Wheeled Walker Plan OT intervention Plan Bed Mobility,Transfers,Gait, Balance,Self care,Safety, Therapeutic Exercise OT Plan Frequency BID Duration LOS Discharge Goals Bed Mobility Ability Standby Assistance Sit to Stand Chair Transfer Ability Supervision/Stand by Chair Transfer Ability Independent Chair Transfer Technique Sit to/from Ambulatory Chair Transfer Assistive Devices Rolling Walker Feeding Ability Independent Lower Body Dressing Ability Assistance X1 Upper Body Dressing Ability Standby Assistance Bathing Ability Assistance x1 Performing Toilet Hygiene Ability Standby Assistance Overall Commode/Toilet Transfer Ability Standby Assistance Commode/Toilet Transfer Technique Sit to/from Ambulatory Discharge Plan OT Discharge Plan
[2021-03-21] VITALS: BP 145/72; PULSE 93; RESP 16; TEMP 37.2; O2SAT 89
[2021-03-21 04:00] VITALS: BP 132/73; PULSE 93; RESP 16; TEMP 37.2; O2SAT 91; BMI 37.5
--- NOTE | 2021-03-21 05:29 | PC.NURSE ---
A&OX4. PT TOLERATING RA WELL. PT HAS HAD INTERMITTENT PAIN T/O SHIFT. TX WITH PRN PAIN MEDICATION. ON REASSESSMENT, PT RESTING IN BED. DRESSING TO L KNEE CDI. POLAR PACK PRESENT. NO OTHER C/O THUS FAR. VSS WILL CONTINUE TO MONITOR.
[2021-03-21 07:30] VITALS: BP 149/71; PULSE 93; RESP 18; TEMP 36.6; O2SAT 94
[2021-03-21 11:09] VITALS: BP 137/63; PULSE 87; RESP 17; TEMP 36.8; O2SAT 97
--- NOTE | 2021-03-21 13:07 | HMH.ORTHPN ---
Subjective Date: 03/21/21 Time: 11:45 Principal diagnosis: S/p total knee arthroplasty, left Interval history: Patient is status post left total knee arthroplasty, postoperative day 2. Patient is sitting out in the chair. She says she is doing well and had a fairly good night's rest. She is having some pain in the knee as to be expected; she says the pain is well controlled with as needed pain medication. Today she says she has no nausea and vomiting and is managing to eat and drink well. No history of any cough, chest pain, shortness of breath or palpitations. She started mobilization with physical therapy and says it is going well. PN: Obj Ex Vital signs: Temp Pulse Resp BP Pulse Ox 98.2 F 87 17 137/63 97 03/21/21 11:09 03/21/21 11:09 03/21/21 11:09 03/21/21 11:09 03/21/21 11:09 Narrative: Exam: General appearance: alert, active, awake Cardiovascular: regular rate & rhythm, normal peripheral pulses Respiratory: No respiratory distress noted, speaks in full sentences ABD: soft and non tender Neuro: alert, awake, oriented x 3 On examination of the lower extremities the limb lengths are equal. On examination of the left knee the dressings are clean, dry and intact. Leg compartments are soft. Distal pulses are 2+. Capillary refill is brisk. No stretch pain or signs of compartment syndrome noted. She is actively moving the ankle, foot and the toes. Sensation is intact to light touch throughout. She is able to actively straight leg raise and has regained good quadriceps control. - Urinary Catheter Management Toney Cath placed during this visit: no Progress Note: A&P (1) Primary osteoarthritis of left knee Status: Acute (2) Status post total knee replacement, left Status: Acute (3) Hypertension Status: Acute (4) Hyperlipidemia Status: Acute (5) GERD (gastroesophageal reflux disease) Status: Acute Assessment and Plan for All Diagnoses:: I have reviewed the clinical findings and progress with the patient. She is doing very well without any postop problems. She is not having any more nausea or vomiting. Continue standard post TKA physical therapy and mobilization weightbearing as tolerated. Avoid placing pillow behind the knee. Patient regained good quadriceps control and is able to actively straight leg raise. Continue DVT prophylaxis and as needed pain medication. Patient is cleared for discharge by physical therapy and she will be discharged home with home health. Follow-up in my office in 2 weeks time.
--- NOTE | 2021-03-21 13:16 | HMH.DCSUM ---
General - General Admission date:: 03/19/21 Discharge date: 03/21/21 HPI HPI: Patient is a 65-year-old female with advanced degenerative joint disease of the left knee who is admitted to the hospital electively following an uncomplicated primary total knee arthroplasty on 03/19/2021. Prior to surgery patient had long-standing pain, stiffness and disability secondary to advanced degenerative arthritis in her left knee. She has not responded well to conservative management including NSAID, Tylenol, and intra-articular injections in the past. She is using assistive walking devices. Her walking distance and ADLs are adversely affected; she also has history of night pain and sleep disturbance. A total knee arthroplasty is indicated to reduce the risk of falls, improve the pain, mobility and quality of life. The surgical and nonsurgical alternatives were discussed in detail with the patient as well as the risks and benefits of the surgery. Patient previously had a right total knee arthroplasty about 10 years ago and is doing very well with her right knee. Refer to my office note for full details. Hospital Course Hospital Course: Patient underwent an uncomplicated difficult primary left total knee arthroplasty on 03/19/2021. Following surgery patient was admitted to hospital and progressed well. She did have significant nausea and vomiting on the first postoperative day but this has settled down after her pain medication was changed. The postoperative check x-ray was satisfactory with good alignment and fixation of the components. Patient progressed well with physical therapy and was able to mobilize using a walker. After 2 days of hospital stay for observation, patient is discharged home with home health on 03/21/2021. At the time of discharge she has regained good quadriceps control and is able to actively straight leg raise. Patient has some knee pain as to be expected and her pain is well controlled with as needed oral pain medication. The incision is healthy and healing well. No signs of any erythema, induration or discharge noted. Patient was started on Xarelto 10 mg daily for DVT prophylaxis after surgery. The neurovascular status in both lower extremities is intact. Pedal pulses 2+ bilaterally and fully sensate distally. No clinical evidence of DVT noted. Patient was cleared for discharge by physical therapy. On the day of discharge, the patient has been stable. Patient is afebrile at the time of discharge. Condition at discharge: improved and stable. Treatments and Procedures: Total knee arthroplasty, left knee; date of surgery 03/19/2021. Objective Vital signs: Temp Pulse Resp BP Pulse Ox 98.2 F 87 17 137/63 97 03/21/21 11:09 03/21/21 11:09 03/21/21 11:09 03/21/21 11:09 03/21/21 11:09 no acute distress, obese - *Routine HEENT Exam Head: Present: normocephalic Eye: Present: EOMI ENT: Present: mucous membranes moist - *Routine Neck Exam Present: supple - *Routine Respiratory Exam Present: CTA bilaterally - *Routine Cardiovascular Exam Present: RRR - *Routine Abdominal Exam Present: soft, normoactive bowel sounds. Absent: tenderness - *Routine Extremities Exam Comments: On examination of the lower extremities the limb lengths are equal. On examination of the left knee the incision is clean, dry and healthy. No signs of infection or other complications are noted. There is minimal swelling and ecchymosis around the knee as to be expected at this stage. Knee range of movements is 5 to 70 degrees of flexion. Patient has regained good quadriceps activation and is able to actively straight leg raise. Calf is soft, compressible and nontender. Distal pulses are 2+ bilaterally. Capillary refill is brisk. Sensation is intact to light touch throughout. Patient is actively moving the ankle, foot and the toes. No signs of DVT noted. - *Routine Skin Exam Present: intact, warm. Absent: rash - *
== END 2021-03-21 14:50 | disposition home health service (06) ==
LOC: 2ND 10:21 → OB 14:29 → 2ND 03-20 10:13
PROVIDERS: Admitting Provider Orthopaedic Surgery; PCP Nurse Practitioner Family; Visit Provider Orthopaedic Surgery
PROC: (CPT 27447; principal; 2021-03-19 10:00)
DX: M17.12 Unilateral primary osteoarthritis, left knee (principal); E78.5 Hyperlipidemia, unspecified; I10 Essential (primary) hypertension; K21.9 Gastro-esophageal reflux disease without esophagitis; Z85.3 Personal history of malignant neoplasm of breast; Z88.2 Allergy status to sulfonamides; Z88.8 Allergy status to other drugs, medicaments and biological substances; R11.2 Nausea with vomiting, unspecified
CPT/HCPCS: 27447; 36415; 73560; 80048; 85025; 87581; 87633; 87798; 94761; 97116; 97161; 97166; 97530; 97535; C1776; G0283; G0378; J2405; J2704; J3370

== ENCOUNTER → 2021-04-03 08:56 | Outpatient (CLI) | payer MEDICARE, OTHER, SELFPAY ==
--- NOTE | 2021-04-03 09:01 | XR_ITS ---
PROCEDURE: XR KNEE LT 2V CLINICAL INDICATION: sp LT total knee arthroplasty sx 03/19/21 COMPARISON: CR [id number] XR knee LT 4V from 07/08/2018 CR XR KNEE LT 4V from 07/21/2019 CR XR KNEE LT 4V from 03/06/2021 CR XR KNEE LT 2V from 03/19/2021 FINDINGS: Good alignment status post total knee arthroplasty. Previously noted soft tissue gas is no longer apparent. No evidence orthopedic hardware malfunction. IMPRESSION: Good alignment status post total knee replacement Dictated by: Sagar Goncalves MD 04/03/2021 11:52 Sagar Goncalves MD in [facility] 04/03/2021 11:52
== END ==
PROVIDERS: PCP Internal Medicine Adolescent Medicine; Visit Provider Orthopaedic Surgery
DX: Z96.652 Presence of left artificial knee joint (principal); M25.562 Pain in left knee
CPT/HCPCS: 73560

== ENCOUNTER → 2021-05-14 09:26 | Outpatient (CLI) | payer MEDICARE, OTHER, SELFPAY ==
--- NOTE | 2021-05-14 09:28 | XR_ITS ---
PROCEDURE: XR KNEE LT 2V CLINICAL INDICATION: sp LT TKa, sx 03/19/21 COMPARISON: CR XR KNEE LT 4V from 07/21/2019 CR XR KNEE LT 4V from 03/06/2021 CR XR KNEE LT 2V from 03/19/2021 CR XR KNEE LT 2V from 04/03/2021 FINDINGS: Total left knee arthroplasty is noted. Satisfactory alignment of the prosthesis. No periprosthetic fractures or lucency is noted. Bone density is within normal limits. No suprapatellar joint effusion. Soft tissues are unremarkable. IMPRESSION: Total left knee arthroplasty. No acute abnormality. Dictated by: Claudia Garner 05/14/2021 09:47 Claudia Garner in [facility] 05/14/2021 09:47
== END ==
PROVIDERS: PCP Internal Medicine Adolescent Medicine; Visit Provider Orthopaedic Surgery
DX: Z96.652 Presence of left artificial knee joint (principal); M25.562 Pain in left knee
CPT/HCPCS: 73560

== ENCOUNTER 2021-06-07 11:00 | Outpatient (RCR) | payer MEDICARE, OTHER, SELFPAY ==
--- NOTE | 2021-04-24 15:49 | HMH.PTOPEV ---
PT Outpatient Evaluation Rehab PT Outpatient Evaluation Start: 04/24/21 15:35 Freq: Status: Active Protocol: Document 04/24/21 15:35 AZAMARCHANA (Rec: 04/24/21 15:49 CYNDY [id number]) Electronically Signed By Aleksandr Lennon, PT 04/24/21 15:35 Outpatient Therapy Subjective History Subjective History Patient is a 65 year old female presenting to outpatient PT with reports of L knee pain S/P L TKA performed 03/19/21 (5w 1d S/P). Patient reports hx of chronic knee pain starting approximately 5 years ago of insidious onset. Comorbidities include hx of R TKA, HTN and lumbar spine pain . Chief Complaint Pain,Stiff,Swelling Symptom Type Ache Symptoms Relieved By Rest/Positioning,Ice, Prescription Meds Symptoms Aggravated By Standing,Physical Activity, Walking Prior Functional Limitations Standing,Walking Current Functional Limitations Housework,Standing,Squatting, Recreation Activity,Walking, Stairs,Balance Symptom Description Constant but Variable Level of pain today (0-10) 1 Pain scale - at its best (0-10) 1 Pain scale - at its worst (0-10) 5 Hip/Knee Eval Gait Observation General Gait Pattern Observation Antalgic Gait,Decrease Weight Bear (L) Assistive Device Assistive Devices Straight Cane Palpation Tenderness left Knee Palpation Finding Tenderness Knee Palpation Overall Comment medial joint line 2/4 MMT Hip Flexion Strength Grade 4- Good- Hip Abduction Strength Grade 4- Good- Hip Adduction Strength Grade 4- Good- Hip Extension Strength Grade 4- Good- Hip External Rotation Strength Grade 4 Good Hip Internal Rotation Strength Grade 4 Good Knee Extension Strength Grade 4- Good- Knee Flexion Strength Grade 4 Good ROM Hip ROM Reason Not Measured Within Functional Limits Knee Extension Active Range of Motion ( -2 degrees) Knee Extension Passive Range of Motion ( 0 degrees) Knee Flexion Active Range of Motion ( 95 degrees) Knee Flexion Passive Range of Motion ( 105 degrees) Knee ROM Limitations Soft Tissue Tightness Special Tests Knee Valgus Stress Test Negative Left Knee Varus Stress Test Negative Left Outpatient Therapy Assessment Impairments Pr
== END 2021-06-07 11:05 | disposition home or self-care (01) ==
LOC: PT 11:00
PROVIDERS: PCP Internal Medicine Adolescent Medicine; Visit Provider Orthopaedic Surgery
DX: M25.562 Pain in left knee (principal); Z96.652 Presence of left artificial knee joint
CPT/HCPCS: 97014; 97016; 97110; 97140; 97163; G0283

== ENCOUNTER → 2021-07-17 14:29 | Outpatient (CLI) | payer MEDICARE, OTHER, SELFPAY ==
--- NOTE | 2021-07-17 14:32 | XR_ITS ---
PROCEDURE: XR KNEE LT 2V CLINICAL INDICATION: sp LT TKA, sx 03/19/21 COMPARISON: CR XR KNEE LT 4V from 03/06/2021 CR XR KNEE LT 2V from 03/19/2021 CR XR KNEE LT 2V from 04/03/2021 CR XR KNEE LT 2V from 05/14/2021 FINDINGS: No fracture or dislocation. No lytic or blastic change. There is normal mineralization. Good alignment status post total knee replacement. No evidence of orthopedic complication. No acute fracture or dislocation. No lytic or blastic change. IMPRESSION: Good alignment status post total knee replacement Dictated by: Sagar Goncalves MD 07/17/2021 14:46 Sagar Goncalves MD in [place] 07/17/2021 14:46
== END ==
PROVIDERS: PCP Internal Medicine Adolescent Medicine; Visit Provider Orthopaedic Surgery
DX: Z96.652 Presence of left artificial knee joint (principal); M25.562 Pain in left knee
CPT/HCPCS: 73560

== ENCOUNTER → 2021-08-08 13:43 | Outpatient (CLI) | payer MEDICARE, OTHER, SELFPAY ==
--- NOTE | 2021-08-08 13:53 | XR_ITS ---
PROCEDURE: XR KNEE LT 2V CLINICAL INDICATION: sp LT TKA, sx 03/19/21 COMPARISON: CR XR KNEE LT 2V from 03/19/2021 CR XR KNEE LT 2V from 04/03/2021 CR XR KNEE LT 2V from 05/14/2021 CR XR KNEE LT 2V from 07/17/2021 FINDINGS: Status post total knee replacement on the left with good alignment. No evidence of orthopedic complications. IMPRESSION: Good alignment status post total knee replacement Dictated by: Sagar Goncalves MD 08/08/2021 16:32 Sagar Goncalves MD in [place] 08/08/2021 16:32
[2021-08-08 13:56] LABS: Basophils # 0.1 K/mm3 (0-0.2); Basophils % 0.7 % (0.1-2.0); Eosinophils # 0.1 K/mm3 (0.0-0.4); Eosinophils % 0.9 % (0.1-12.0); Hematocrit 40.9 % (37.0-47.0); Hemoglobin 12.8 g/dL (12.2-16.2); Lymphocytes # 2.3 K/mm3 (0.7-4.5); Lymphocytes % 32.1 % (10-50); Mean Corpuscular HGB Conc 31.2 g/dL (31.8-35.4); Mean Corpuscular Hemoglobin 28.2 pg (27.0-31.2); Mean Corpuscular Volume 90.2 fl (81-99); Mean Platelet Volume 7.6 fl (7.4-10.4); Monocytes # 0.4 K/mm3 (0.1-1.0); Monocytes % 5.7 % (1.7-9.3); Neutrophils # 4.4 K/mm3 (1.8-7.8); Neutrophils % 60.5 % (37.0-80.0); Platelet Count 400 K/mm3 (142-424); Red Blood Count 4.53 M/mm3 (4.20-5.40); Red Cell Distribution Width 14.3 % (11.5-17.5); White Blood Count 7.2 K/mm3 (4.8-10.8)
[2021-08-08 14:10] LABS: C-Reactive Protein 7.1 mg/L (0-4)
[2021-08-08 14:22] LABS: Erythrocyte Sedimentation Rate 15 mm/hr (0-30)
== END ==
PROVIDERS: Visit Provider Orthopaedic Surgery
DX: Z96.652 Presence of left artificial knee joint (principal); M25.562 Pain in left knee
CPT/HCPCS: 36415; 73560; 85025; 85651; 86140

== ENCOUNTER → 2021-09-25 13:38 | Outpatient (CLI) | payer MEDICARE, OTHER, SELFPAY ==
--- NOTE | 2021-09-25 13:47 | XR_ITS ---
PROCEDURE: XR KNEE LT 2V CLINICAL INDICATION: sp LT TKA, sx 03/19/21 COMPARISON: CR XR KNEE LT 2V from 07/17/2021 CR XR KNEE LT 2V from 08/08/2021 FINDINGS: No fracture or dislocation. No lytic or blastic change. There is normal mineralization. Status post knee arthroplasty with good alignment. There are faint flecks increased density in the suprapatellar region and may be due to small metallic flecks from the previous surgery. Unchanged. Other findings:None. IMPRESSION: Good alignment status post knee arthroplasty Dictated by: Sagar Goncalves MD 09/25/2021 19:19 Sagar Goncalves MD in [place] 09/25/2021 19:19
[2021-09-25 13:56] LABS: Basophils % 0.5 % (0.1-2.0); Eosinophils # 0.1 K/mm3 (0.0-0.4); Eosinophils % 1.1 % (0.1-12.0); Hematocrit 38.5 % (37.0-47.0); Hemoglobin 12.6 g/dL (12.2-16.2); Lymphocytes # 2.5 K/mm3 (0.7-4.5); Lymphocytes % 34.8 % (10-50); Mean Corpuscular HGB Conc 32.7 g/dL (31.8-35.4); Mean Corpuscular Hemoglobin 28.6 pg (27.0-31.2); Mean Corpuscular Volume 87.7 fl (81-99); Monocytes # 0.4 K/mm3 (0.1-1.0); Monocytes % 5.6 % (1.7-9.3); Neutrophils # 4.2 K/mm3 (1.8-7.8); Platelet Count 413 K/mm3 (142-424); Red Blood Count 4.39 M/mm3 (4.20-5.40); Red Cell Distribution Width 14.1 % (11.5-17.5); White Blood Count 7.2 K/mm3 (4.8-10.8)
[2021-09-25 14:07] LABS: C-Reactive Protein 9.8 mg/L (0-4)
[2021-09-25 14:57] LABS: Erythrocyte Sedimentation Rate 26 mm/hr (0-30)
== END ==
PROVIDERS: Visit Provider Orthopaedic Surgery
DX: Z96.652 Presence of left artificial knee joint (principal); M25.562 Pain in left knee
CPT/HCPCS: 36415; 73560; 85025; 85651; 86140

== ENCOUNTER → 2021-11-21 12:41 | Outpatient (CLI) | payer MEDICARE, OTHER, SELFPAY ==
--- NOTE | 2021-11-21 12:52 | XR_ITS ---
FINAL REPORT CLINICAL HISTORY: sp LT TKA, sx 03/19/21 COMPARISON: September 25, 2021 FINDINGS: LEFT KNEE 3 views of the left knee were obtained. There is no acute fracture or dislocation. There is total joint prosthesis, anatomically aligned. Soft tissues are unremarkable. IMPRESSION: No acute bony abnormality. Reviewed, Interpreted and Dictated by Jose Vogel MD Transcribed by Dee Keita Authenticated by Jose Vogel MD on 11/21/2021 03:51:35 PM [facility]
== END ==
PROVIDERS: PCP Internal Medicine Adolescent Medicine; Visit Provider Orthopaedic Surgery
DX: Z96.652 Presence of left artificial knee joint (principal); M25.562 Pain in left knee
CPT/HCPCS: 73560

== ENCOUNTER 2022-02-09 14:32 | Emergency (ER) | payer MEDICARE, OTHER, SELFPAY ==
[2022-02-09 14:35] VITALS: BP 131/90; PULSE 87; RESP 19; TEMP 36.8; O2SAT 98; BMI 35.2
--- NOTE | 2022-02-09 14:47 | XR_ITS ---
PROCEDURE INFORMATION: Exam: XR Chest Exam date and time: 02/09/2022 2:44 PM Age: 66 years old Clinical indication: Cough; Additional info: Cough and congestion TECHNIQUE: Imaging protocol: XR of the chest. Views: 2 views. COMPARISON: CR XR CHEST 2V 03/12/2021 11:10 AM FINDINGS: Lungs: Atelectatic changes noted within both lung bases. Pleural spaces: Unremarkable. No pleural effusion. No pneumothorax. Heart/Mediastinum: Unremarkable. No cardiomegaly. Diaphragm: There is nonspecific elevation of the right hemidiaphragm. Bones/joints: The thoracic spine demonstrates mild degenerative changes at multiple levels. Soft tissues: Surgical clips noted within the right axilla. IMPRESSION: Atelectatic changes noted within both lung bases.
--- NOTE | 2022-02-09 15:17 | HMH.EDUTC ---
[facility] [place] Clinical Impression: Influenza A Disposition: Home, Self-Care Condition on Discharge: Good Instructions: DI for Influenza -- Adult Prescriptions: Guaifenesin/Dextromethorphan [Mucinex Dm ER 1,200-60 mg Tab] 1 tab PO BID 10 Days #20 tab Transmission Status: Pending to [facility] predniSONE [Prednisone 20mg Tab] 20 mg PO BID 5 Days #10 tab Transmission Status: Pending to [facility] Referrals: Juliane Marte APRN [Primary Care Provider] - Time of Disposition: 15:43 Medical Decision Making - Flavio Inquiry Pt receiving controlled substance: No Vital Signs: 02/09/22 14:35 Temperature 98.3 F Temperature Source Oral Pulse Rate [Right Brachial] 87 Respiratory Rate 19 Blood Pressure [Right Arm] 131/90 Blood Pressure Mean [Right Arm] 103 Blood Pressure Source [Right Arm] Automatic Cuff Blood Pressure Position [Right Arm] Sitting 02 Sat by Pulse Oximetry 98 Oxygen Delivery Method Room Air - Radiology Data #1 Image(s): Chest Image Reviewed: Yes I have reviewed radiologist's interpretation Preliminary Findings: Normal/NAD PROCEDURE INFORMATION: Exam: XR Chest Exam date and time: 02/09/2022 2:44 PM Age: 66 years old Clinical indication: Cough; Additional info: Cough and congestion TECHNIQUE: Imaging protocol: XR of the chest. Views: 2 views. COMPARISON: CR XR CHEST 2V 03/12/2021 11:10 AM FINDINGS: Lungs: Atelectatic changes noted within both lung bases. Pleural spaces: Unremarkable. No pleural effusion. No pneumothorax. Heart/Mediastinum: Unremarkable. No cardiomegaly. Diaphragm: There is nonspecific elevation of the right hemidiaphragm. Bones/joints: The thoracic spine demonstrates mild degenerative changes at multiple levels. Soft tissues: Surgical clips noted within the right axilla. IMPRESSION: Atelectatic changes noted within both lung bases. [facility] [place] - General Stated complaint: congestion, cough, h/a Time Seen by Provider: 02/09/22 15:17 Mode of Arrival: Ambulatory Source of Information: Patient Limitations: No Limitations Description of Symptoms (Recalled from Triage Doc. by RN): PATIENT WAS DIAGNOSED WITH FLU ON FRIDAY AND STATES THAT HER COUGH AND CONGESTION HAS GOTTEN WORSE HEENT Symptoms (Recalled from RN notes): No Resp Symptoms (Recalled from RN notes): Yes Skin Symptoms (Recalled from RN notes): No MS Symptoms (Recalled from RN notes): No Functional Status (Recalled from RN notes): WNL - History of Present Illness Provider Complaint: Patient diagnosed with flu on 02/04. Has tried taking Tamiflu, but it made her vomit. Feels like cough and congestion are worse. No fever. Onset (ago): day(s) (5) Location: chest Relieving factors: none Exacerbating factors: none Associated symptoms: denies other symptoms Treatments prior to arrival: none - Related Data Home Medications Medication Instructions Recorded Confirmed amlodipine 5 mg tablet 5 mg PO DAILY 07/08/18 09/25/21 cetirizine 10 mg capsule 10 mg PO DAILY 07/08/18 09/25/21 diclofenac sodium 75 mg 75 mg PO BID 07/08/18 09/25/21 tablet,delayed release omeprazole 20 mg capsule,delayed 20 mg PO DAILY 07/08/18 09/25/21 release spironolactone 25 mg tablet 25 mg PO DAILY 07/08/18 09/25/21 rosuvastatin 5 mg tablet 5 mg PO DAILY 03/06/21 09/25/21 Fluticasone Propionate [Flonase 1 spray NS DAILY 03/15/21 09/25/21 Allergy Relief NS] Mirabegron [Myrbetriq] 50 mg PO DAILY 03/15/21 09/25/21 Oxybutynin Chloride 5 mg PO BID 03/20/21 09/25/21 Previous Rx's Medication Instructions Recorded estradiol 10 mcg vaginal tablet 10 mcg VAGINAL WEEKLY #4 tab 04/27/20 Acetaminophen [Acetaminophen 325mg 650 mg PO Q6HP PRN tab 03/21/21 tab] Tramadol HCl [Ultram 50mg 50 - 100 mg PO Q6HP PRN #60 tab 03/21/21 tablet] Guaifenesin/Dextromethorphan 1 tab PO BID 10 Days #20 tab 02/09/22
[2022-02-09 15:50] VITALS: BP 131/90; PULSE 87; RESP 19; TEMP 36.8; O2SAT 98
== END 2022-02-09 15:57 | disposition home or self-care (01) ==
PROVIDERS: Emergency Provider Physician Assistant; PCP Nurse Practitioner Family
DX: J10.1 Influenza due to other identified influenza virus with other respiratory manifestations (principal); K21.9 Gastro-esophageal reflux disease without esophagitis; E78.5 Hyperlipidemia, unspecified; I10 Essential (primary) hypertension; Z88.2 Allergy status to sulfonamides; Z79.899 Other long term (current) drug therapy
CPT/HCPCS: 71046; 99213; G0463

== ENCOUNTER → 2022-03-27 14:58 | Outpatient (CLI) | payer MEDICARE, OTHER, SELFPAY ==
--- NOTE | 2022-03-27 15:01 | XR_ITS ---
FINAL REPORT CLINICAL HISTORY: s/p total knee replacement FINDINGS: Two views of the left knee were obtained. There are postoperative changes from knee arthroplasty. There is no evidence of fracture or dislocation. There is no evidence of joint effusion. No localized soft tissue abnormality is seen. There is no evidence of foreign body. IMPRESSION: Postoperative changes from knee arthroplasty. Reviewed, Interpreted and Dictated by Lowell Franco III, MD Transcribed by Dee Keita Authenticated and [facility]
== END ==
PROVIDERS: PCP Internal Medicine Adolescent Medicine; Visit Provider Physician Assistant Surgical
DX: Z96.652 Presence of left artificial knee joint (principal); M25.562 Pain in left knee
CPT/HCPCS: 73560

== ENCOUNTER → 2022-10-16 09:39 | Outpatient (CLI) | payer MEDICARE, OTHER, SELFPAY ==
--- NOTE | 2022-10-16 09:51 | XR_ITS ---
FINAL REPORT CLINICAL HISTORY: s/p TKA COMPARISON: March 2022 FINDINGS: Three views of the left knee reveal no evidence of fracture or dislocation. The bony alignment is normal. There has been knee arthroplasty. There is no evidence of joint effusion. No localized soft tissue abnormality is seen. IMPRESSION: No acute abnormality identified. Reviewed, Interpreted and Dictated by Lowell Franco III, MD Transcribed by Chuy Cavazos Authenticated and [facility]
--- NOTE | 2023-02-20 13:59 | PC.NURSE ---
I have spoke with patient on a couple of different occassions and she still doesn't want to do HST at this time.
== END ==
PROVIDERS: PCP Internal Medicine Adolescent Medicine; Visit Provider Orthopaedic Surgery
DX: Z96.652 Presence of left artificial knee joint (principal); M25.562 Pain in left knee
CPT/HCPCS: 73562

== ENCOUNTER 2024-04-02 10:02 | Day surgery (SDC) | payer MEDICARE, OTHER, SELFPAY ==
[2024-04-01 14:03] VITALS: BMI 35.2
[2024-04-02 10:29] VITALS: BP 151/84; PULSE 84; RESP 18; TEMP 36.2; O2SAT 96
[2024-04-02] MEDS: LACTATED RINGERS 1000ML 1,000 ML 25 ML IV (10:35)
--- NOTE | 2024-04-02 10:38 | P.PNANES_ITS ---
[facility] Disclaimer: The information contained in this section may have been updated after the patient was seen, as this information can be updated by other users. Medical History Arthritis Allergies Overactive bladder GERD (gastroesophageal reflux disease) HLD (hyperlipidemia) HTN (hypertension) Surgical History History of tonsillectomy History of knee replacement Family History Other Family history of cancer Social History Smoking Status: Never smoker second hand exposure: Yes alcohol intake: never substance use type: denies use current occupational status: retired and other Travel in the last 8 weeks: None household members: spouse housing: house current occupational exposures/hazards: No caffeine: Yes [facility] Anesthesia Checklist Patient Identification Patient Identification: Arm Band and Verbal (Name & ) Structural Data Admitted From: Home Planned Operative Procedure/s: Colonoscopy Consent for Planned Operative Procedure(s) Verified: Yes Verified Documents: Surgical Consent NPO Status Verified Time NPO: 00:00 Additional verifications Anesthesia Reactions: No Hx Blood Transfusions: No Blood Transfusion Reaction: No Airway Assessment Mallampati Score:: Class II C-Spine Mobility Assessed: Yes TMJ Mobility Assessed: Yes Dentition: Good Dentition Neurological Assessment Level of Consciousness: Awake Hx Seizures: No Numbness or tingling in extremities: No Anesthesia Plan Anesthesia Risk discussed: Yes Anesthesia Plan: Verified ASA Class: II Anesthesia Type: MAC
--- NOTE | 2024-04-02 10:58 | HMH.SCOPE ---
Procedure: Date: 04/02/24 Patient Date of :: 1955 Procedure Performed:: Total colonoscopy to terminal ileum with biopsies and polypectomy using biopsy forceps . Indications:: Patient is a 68-year-old female who presents for surveillance colonoscopy. She has a family history of colon cancer in her sister and maternal grandmother. She underwent colonoscopy 10/14/[address] Quintaan at which time she had polyps. Colonoscopy on 10/03/[address] Burden revealed polyps. Last colonoscopy was 07/19/[address] Campbell at which time she had no polyps but had some superficial ulceration and has circumferential pattern near the ileocecal valve which was biopsied revealing colonic type mucosa with moderate nonspecific acute colitis with fibrinopurulent debris consistent with ulceration. This was felt to likely be NSAID induced. She is on diclofenac . 5-year follow-up colonoscopy was recommended given the family history. She does have symptoms consistent with diarrhea predominant IBS. . Performing Provider:: Lowell Rome MD Referring Provider:: Jose Guadalupe Jorgensen MD Sedation:: MAC sedation . Procedure:: Patient history was obtained and appropriate physical examination was performed. Patient's medications and allergies were reviewed. Informed consent was obtained after explaining the benefits, alternatives, and risks of the procedure including, but not limited to, bleeding, perforation, missed lesions, and adverse reaction to anesthesia medications. Patient was transported to endoscopy procedure room. Patient was connected to monitoring devices. Throughout the procedure the patient's blood pressure, pulse, and oxygen saturations were monitored continuously. Patient identification and planned procedure were verified by the staff. Patient was positioned in lateral decubitus position. Digital anorectal exam was performed. Variable stiffness Olympus colonoscope was inserted and advanced under direct visualization to the cecum. Adequacy of the colonic preparation was noted. The colonoscope was advanced a short distance into the terminal ileum. The colonoscope was then slowly withdrawn while carefully examining the color, texture, anatomy, and integrity of the mucosoa circumferentially. Within the rectum retroflexion was performed. Colonoscope was then withdrawn. Impression: Colonic preparation was good. In the ascending colon just distal to the ileocecal valve there was a benign-appearing stricture which did not appear to appreciably constrict the lumen. The colonoscope was advanced beyond this. It was advanced a generous distance into the terminal ileum which appeared grossly normal. Colonoscope was withdrawn through the colon with careful surveillance. Several biopsies were obtained at the region of the benign stricture. This likely corresponds with previous circumferential superficial ulceration noted on colonoscopy in 2019. Retroflexion within the rectum revealed tiny anorectal polyp which was removed in a piecemeal fashion using biopsy forceps. . Findings:: Benign-appearing stricture ascending colon just distal to the ileocecal valve Anorectal polyp Recommendations:: Repeat colonoscopy pending pathology. Likely 5 years. . Complications:: None immediately apparent Estimated blood obtained (mL): 3 Colonoscopy Component Colonoscopy Component Was a colonoscopy performed during today's procedure?: Yes Recommended follow up colonoscopy of at least 10 years?: No If no, follow up colonoscopy recommended in ___ years?: 5 Reason for not recommending >/= 10 yr follow-up interval?: See above
[2024-04-02 11:15] VITALS: O2SAT 100
[2024-04-02 11:40] VITALS: BP 103/67; PULSE 76; RESP 18; TEMP 36.6; O2SAT 92
[2024-04-02 11:50] VITALS: BP 106/66; PULSE 72; RESP 16; O2SAT 93
[2024-04-02 12:10] VITALS: BP 130/77; PULSE 58; RESP 18; O2SAT 97
== END 2024-04-02 12:15 | disposition home or self-care (01) ==
PROVIDERS: PCP Internal Medicine Adolescent Medicine; Visit Provider Surgery
PROC: 0DJD8ZZ Inspection of Lower Intestinal Tract, Via Natural or Artificial Opening Endoscopic (ICD-10-PCS; CPT 45380; principal; 2024-04-02 11:30)
DX: Z12.11 Encounter for screening for malignant neoplasm of colon (principal); Z80.0 Family history of malignant neoplasm of digestive organs; Z86.010 Personal history of colon polyps; D12.4 Benign neoplasm of descending colon; R19.7 Diarrhea, unspecified
CPT/HCPCS: 45380; 88305; J7120

== ENCOUNTER 2024-07-29 09:00 | Outpatient (CLI) | payer MEDICARE, OTHER, SELFPAY ==
--- NOTE | 2024-07-29 09:02 | XR_ITS ---
FINAL REPORT TECHNIQUE: Bone densitometry calculations of the lumbar spine and left hip were obtained. CLINICAL HISTORY: ASYMPTOMATIC PT MENOPAUSAL FINDINGS: Using L1-4, the bone mineral density of the spine is 1.33 g/cm2, corresponding to T-score of 2.7. Using the left hip, the bone mineral density of the femoral neck is 0.97 g/cm2, corresponding to a T-score of 0.3. Using the right hip, the bone mineral density of the femoral neck is 1.0 g/cm2, corresponding to a T-score of 0.9. NOTE: T-score: Standard deviation compared with peak bone mass of young adult mean. *Following the recommendations of the International Society of Bone densitometry, classification of hip BMD is based on the lower of two T-scores; total hip or femoral neck. IMPRESSION: Normal bone mineral density of the lumbar spine and hips. Although, bone mineral density of the lumbar spine is likely falsely elevated due to hypertrophic change. Reviewed, Interpreted and Dictated by Jose Vogel MD Transcribed by Charissa Arzate Authenticated and . [facility]
== END 2024-07-29 23:59 | disposition home or self-care (01) ==
LOC: RAD 09:00
PROVIDERS: PCP Internal Medicine Adolescent Medicine; Visit Provider Nurse Practitioner Family
DX: Z78.0 Asymptomatic menopausal state (principal)
CPT/HCPCS: 77080

== ENCOUNTER 2025-04-10 16:36 | Emergency (ER) | payer MEDICARE, OTHER, SELFPAY ==
--- OUTSIDE RECORDS SUMMARY | 2025-04-10 16:44 | XMS_ITS | Referral Summary ---
Author Organization [email or web address] Address [address] [place] [address] Care Team Providers Care Belly Packer Name Role Phone Jose Guadalupe Jorgensen MD Primary Care Provider [phone] Moose Castro MD Unavailable [phone] Encounters Date Type Department Care Team Description 02/03/2025 Outside Orders [facility] Breast [address] [phone] Jose Guadalupe Jorgensen MD Visit for screening mammogram (Primary Dx) 02/03/2025 10:45 AM EDT - 02/03/2025 11:59 PM EDT Hospital Encounter [address] [address] Visit for screening mammogram (Primary Dx) Discharge Disposition: Home or Self Care from Last 3 Months Social History Tobacco Use Types Packs/Day Years Used Date Smoking Tobacco: Never Assessed Interpersonal Safety Answer Date Record ed Family or friends hurt you Not on file 11/14 Family or friends insult you Not on file Family or friends threaten you Not on file 0 11/14/2023 Family or friends scream or curse at you Not on file 11/14/2023 Housing Stability Answer Date Recorded Living situation today Not on file Living situation problems Not on file 2023 Family and Community Support Answer Gildardo e Recorded Help with Day to Day Activities Not on file 11/14/2023 Feeling Lonely or Isolated Not on file 11/14 Educational Attainment Answer Date Channing rded Speak language other than Luxembourgish at home Not on file 11/14/2023 Want help with school or training Not on file 11/14/2023 Depression Answer Date Recorded PHQ-2 Risk Not on file 11/14/2023 Disabilities Answer Date Recorded Difficulty concentrating Not on file 024 Difficulty doing errands alone Not on file 0 11/14/2023 Substance Use Answer Date Recorded Used prescription meds for non-medical reasons N ot on file 11/14/2023 Used illegal drugs past 12 months Not on file 11/14/2023 Comments Unknown Sex and Gender Information Value Date Recorded Sex Assigned at Not on file Legal Sex Female 7:19 PM CDT Gender Identity Not on file Sexual Orientation Not on file Plan of Treatment Upcoming Encounters Date Type Department Care Team (Late st Contact Info) Description 02/09/2026 11:30 AM EDT Appointment [address] [phone] Procedures Procedure Name Priority Date/Time Associated Diagnosis Comments MM DIGITAL MAMMO SCREEN WITH RALPH BILATERAL Routine 02/03/2025 11:22 AM EDT Visit for screening mammogram from Last 3 Months Results * MM digital mammo screen with ralph bilateral (02/03/2025 11:22 AM EDT) Anatomical Region Laterality Modality Breast Bilateral Mammography 02/04/2025 7:18 AM EDT Impressions 02/04/2025 10:31 AM EDT Stable exam without mammographic evidence of malignancy. BI-RADS CATEGORY: 2 , BENIGN FINDING(S). RECOMMENDED FOLLOW-UP: Annual mammography. A letter including results and recommendations was sent to the patient. Density notification was included for patients with pattern 3 or 4 breast tissue. Patient information was entered into a reminder system with a target due date for the next mammogram. NOTES: Mammography does not detect approximately 10-15% of breast cancers. Physical examination of the breasts by a physician and regular monthly breast self examinations are integral parts of breast cancer screening. A normal mammogram does not exclude breast cancer if there is an abnormal finding on physical examination. When clinically indicated, a biopsy should not be postponed because of a normal mammogram report. Narrative 02/04/2025 10:31 AM EDT BILATERAL SCREENING DIGITAL MAMMOGRAPHY CLINICAL INDICATION: Routine screening, personal history of right breast cancer. TECHNIQUE: Bilateral CC and MLO views were obtained with digital acquisitions with 3D tomosynthesis. The study was read with the assistance of CAD. COMPARISON: Exams dating back to 2020. DENSITY: The breasts are almost entirely fatty. FINDINGS: Severe distortion with extensive dystrophic calcification is present within the right breast, along with focal asymmetry. This is compatible with chronic posttreatment changes. No new mass or distortion is seen. There are no suspicious calcifications. Jose Guadalupe Jorgensen MD IMG MAMMOGRAPHY ORDERABLES F inal Result from Last 3 Months Insurance [place]IC[place] [address] [place] [address] Care Teams Belly Packer Relationship Specialty Start Date End Date Jose Guadalupe Jorgensen MD [address] [place] [address] PCP - General Adolescent Medicine 07/21/23 Moose Castro MD [address] [facility] [address] [place] [address] Hematology and Oncology 07/21/23
--- OUTSIDE RECORDS SUMMARY | 2025-04-10 16:44 | XMS_ITS | Clinical Summary ---
Author Organization [employer] Address [address] [place] [address] Care Team Providers Care Tempering Oven Operator Name Role Phone Jose Guadalupe Jorgensen MD Primary Care Provider [phone] Moose Castro MD Unavailable [phone] Encounters Date Type Department Care Team Description 02/03/2025 10:45 AM EDT - 02/03/2025 11:59 PM EDT Hospital Encounter [address] [address] Visit for screening mammogram (Primary Dx) Discharge Disposition: Home or Self Care 02/03/2025 Outside Orders [address] [address] Jose Guadalupe Jorgensen MD Visit for screening mammogram (Primary Dx) from Last 3 Months Social History Tobacco [...] Date Channing rded Speak language other than Swedish at home Not on file 11/14/2023 Want [...] Info) Description 02/09/2026 11:30 AM EDT Appointment [address] [address] Health Maintenance Due Date Last Done Comments Medicare Initial AWV [id number] CT Colonography 1955 Colonoscopy 1955 Colorectal Cancer Screening 1955 DXA SCAN 1955 FOBT/FIT 1955 Fit-DNA (Cologuard) 1955 Sigmoidoscopy 1955 Depression Screening (12+) 1968 Tobacco Cessation Counseling and Screening (12+) 1968 Hepatitis C Screening 1974 DTAP/TDAP/TD VACCINES (1 - Tdap) 1975 Pneumococcal 50+ years (1 of 1 - PCV) 2006 Shingles Vaccine (Zoster) (1 of 2) 2006 COVID-19 VACCINE (3 - 2023-2 5 season) 2024 01/24/2021, 12/27/2020 Falls Risk Screening 10/27/2024 Influenza Vaccine (Season Ended) 2025 Breast Cancer Screening 02/03/2027 02/04/20, 01/22/2024, 07/21/2023, Additional history exists Respiratory Syncytial Virus (RSV) Adult or (1 - 1-dose 75+ series) 2031 Procedures Procedure Name Priority Date/Time Associated Diagnosis [...] 3 Months Insurance MEDICARE PART A B SUPP Care Teams Tempering Oven Operator Relationship Specialty Start Date End Date Jose Guadalupe Jorgensen MD [address] [place] [address] PCP - General Adolescent Medicine 07/21/23 Moose Castro MD [address] [facility] [address] [place], [place] [id number] Hematology and Oncology 07/21/23
--- OUTSIDE RECORDS SUMMARY | 2025-04-10 16:44 | XMS_ITS | Encounter Summary ---
Author Organization [employer] [facility] [employer] Address [address] [place] [address] Care Team Providers Care [employer] Name Role Phone Jose Guadalupe Jorgensen MD Primary Care Provider + [phone] Moose Castro MD Unavailable [phone] Reason for Referral * Mammography (Routine) - Closed Specialty Diagnoses / Procedures Referred By Robson tobar Referred To Contact Diagnoses Abnormal mammogram Procedures MM digital mammo diagnostic with tito right Michelle Franco MD [facility] [place] [address] Phone: tel: fax: Referral ID Status Reason Start Date Expiration Date Visits Re quested Visits Authorized [id number] Closed 01/15/2023 07/14/2023 1 1 * Ultrasound (Routine) - Closed Specialty Diagnoses / Procedures Referred By Robson tobar Referred To Contact Diagnoses Abnormal mammogram Procedures US BREAST RIGHT LIMITED Michelle Franco MD [facility] [place] [address] Phone: tel: fax: Referral ID Status Reason Start Date Expiration Date Visits Re quested Visits Authorized [id number] Closed 07/21/2023 01/17/2024 1 1 Encounter Details Date Type Department Care Team (Late st Contact Info) Description 01/15/2023 Outside Orders [facility] [address] [place] [address] Michelle Franco MD [address] [id number] Abnormal mammogram (Primary Dx) Social History Tobacco Use Types Packs/Day Years Used Date Smoking Tobacco: Never Assessed Comments Unknown Sex and Gender Information Value Date Recorded Sex Assigned at Not on file Legal Sex Female 7:19 PM CDT Gender Identity Not on file Sexual Orientation Not on file documented as of this encounter Plan of Treatment Upcoming Encounters Date Type Department Care Team (Late st Contact Info) Description 02/09/2026 11:30 AM EDT Appointment [facility] [address] [facility] [address] [place] [address] documented as of this encounter Results * US BREAST RIGHT LIMITED (07/21/2023 12:05 PM EDT) Anatomical Region Laterality Modality Breast Right Ultrasound 07/21/2023 12:0 6 PM EDT Impressions 07/21/2023 12:19 PM EDT FINAL IMPRESSION: Stable mammogram and focused sonogram. No findings suspicious for malignancy. Bi-RADS: ACR BI-RADS 2: Benign findings. RECOMMENDATIONS: Bilateral screening mammography due in December 2023 At our facility, a cahto marker is positioned over a visible skin lesion and a linear marker is The results and recommendations were discussed with the patient on the day of her appointment. In addition, a written report in lay terms was given to the patient. Patient information was entered into a reminder system with a target due date for the next mammogram. Narrative 07/21/2023 12:19 PM EDT PROCEDURE: Right diagnostic mammogram with Digital Breast Tomosynthesis (DBT) with focused ultrasound. REASON FOR EXAM: 6 month follow-up of an asymmetry in the inferior right breast felt to represent fat necrosis. 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 FAMILY HISTORY: No family history of breast cancer COMPARISON STUDY: [facility] December 2022, November 2021 FINDINGS: Single spot compression 2-D 3-D right lateral medial view was performed as well as focused ultrasound of the previously noted area of concern at the 4 to 5:00 position in the inframammary fold. The breast tissue has pattern b (scattered fibroglandular densities). The original area of concern again effaces. No significant changes noted when compared to the prior examination in December and the examination last year in 2021. Ultrasound of the 4-5 o'clock hypoechoic tissue reveals no significant change. The tissue on today's examination is actually more well defined with better defined margins than on the examination 6 months ago. The findings remain consistent with fat necrosis. This examination was reviewed with the benefit of computer aided detection (CAD). us Michelle Franco MD IMG US ORDERABLES Final Result * MM digital mammo diagnostic with tito right (07/21/2023 11:36 AM EDT) Anatomical Region Laterality Modality Breast Right Mammography 07/21/2023 12:0 6 PM EDT Impressions 07/21/2023 12:19 PM EDT FINAL IMPRESSION: Stable mammogram and focused sonogram. No findings suspicious for malignancy. Bi-RADS: ACR BI-RADS 2: Benign findings. RECOMMENDATIONS: Bilateral screening mammography due in December 2023 At our facility, a cahto marker is positioned over a visible skin lesion and a linear marker is The results and recommendations were discussed with the patient on the day of her appointment. In addition, a written report in lay terms was given to the patient. Patient information was entered into a reminder system with a target due date for the next mammogram. Narrative 07/21/2023 12:19 PM EDT PROCEDURE: Right diagnostic mammogram with Digital Breast Tomosynthesis (DBT) with focused ultrasound. REASON FOR EXAM: 6 month follow-up of an asymmetry in the inferior right breast felt to represent fat necrosis. The patient has a history of lumpectomy in 2005 followed by extensive fat necrosis. FAMILY HISTORY: No family history of breast cancer COMPARISON STUDY: [facility] December 2022, November 2021 FINDINGS: Single spot compression 2-D 3-D right lateral medial view was performed as well as focused ultrasound of the previously noted area of concern at the 4 to 5:00 position in the inframammary fold. The breast tissue has pattern b (scattered fibroglandular densities). The original area of concern again effaces. No significant changes noted when compared to the prior examination in December and the examination last year in 2021. Ultrasound of the 4-5 o'clock hypoechoic tissue reveals no significant change. The tissue on today's examination is actually more well defined with better defined margins than on the examination 6 months ago. The findings remain consistent with fat necrosis. This examination was reviewed with the benefit of computer aided detection (CAD). us Michelle Franco MD IMG MAMMOGRAPHY ORDERABLES Fin al Result documented in this encounter Visit Diagnoses Diagnosis Abnormal mammogram- Primary Abnormal mammogram, unspecified Abnormal mammogram Abnormal mammogram, unspecified Abnormal mammogram Abnormal mammogram, unspecified documented in this encounter Care Teams [employer] Relationship Specialty Start Date End Date Jose Guadalupe Jorgensen MD [address] [place] [address] PCP - General Adolescent Medicine 07/21/23 Moose Castro MD [address] [facility] [address] [place] [address] Hematology and Oncology 07/21/23 documented as of this encounter
--- OUTSIDE RECORDS SUMMARY | 2025-04-10 16:44 | XMS_ITS | Clinical Summary ---
Author Organization Healthcare Address [address] [place] [address] Care Team Providers Care President [employer] Name Role Phone Unavailable Primary Care Provider Unavailabl e Social History Tobacco Use Types Packs/Day Years Used Date Smoking Tobacco: Never Assessed Comments Unknown Sex and Gender Information Value Date Recorded Sex Assigned at Not on file Legal Sex Female 7:53 PM EDT Gender Identity Not on file Sexual Orientation Not on file Plan of Treatment Health Maintenance Due Date Last Done Comments Dental Oral Exam 1956 [facility]-Bone Density Scan 1956 [facility]-Depression Screening 1956 [facility]-Infant/Child/Adol SDOH Screenings 1956 [facility]- SDOH Screenings 1974 [facility]-Adult SDOH Screenings 1974 [facility]-DTaP,Tdap,and Td Vaccines (1 - Tdap) 1975 Dental X-Ray: Bitewings 07/30/1998 07/29/1997 Dental Prophylaxis 08/18/1999 02/15/1999, 1 , 02/09/1998, Additional history exists Dental X-Ray: Full Mouth 07/30/2000 07/29/1997 CT Colonography 2001 Colonoscopy 2001 FIT-DNA 2001 FIT 2001 FOBT 2001 Sigmoidoscopy 2001 [facility]-Colorectal Cancer Screening 2001 [facility]-Pneumococcal Vaccine: 50+ Years (1 of 1 - PCV) 2006 [facility]-Zoster Vaccines (1 of 2) 2006 [id number] Vaccine (1 - season) 2024 [facility]-Influenza Vaccine (Season Ended) 2025 [facility]-RSV Vaccine: 60+ Years or (1 - 1-dose 75+ series) 2031 HPV Vaccines Aged Out No longer eligi ble based on patient's age to complete this topic [facility]-HIB Vaccines Aged Out No longer e ligible based on patient's age to complete this topic [facility]-Hepatitis A Vaccines Aged Out No longer eligible based on patient's age to complete this topic [facility]-IPV Vaccines Aged Out No longer e ligible based on patient's age to complete this topic [facility]-Rotavirus Vaccines Aged Out No lo nger eligible based on patient's age to complete this topic Procedures Procedure Name Priority Date/Time Associated Diagnosis Comments PROPHYLAXIS - ADULT Routine 02/15/1999 1 2:00 AM EDT INTRAORAL - COMPLETE SERIES OF RADIOGRAPHIC IMAGES Routine 07/29/1997 12:00 AM EDT from Last 3 Months or Most Recently Relevant to Health Maintenance
--- OUTSIDE RECORDS SUMMARY | 2025-04-10 16:44 | XMS_ITS | Encounter Summary ---
Author Organization [employer] [facility] [employer] Address [address] [place] [address] Care Team Providers Care Traveling Buyer Name Role Phone Jose Guadalupe Jorgensen MD Primary Care Provider + [phone] Moose Castro MD Unavailable [phone] Encounter Details Date Type Department Care Team (Late st Contact Info) Description 07/17/2023 Outside Orders [facility] [address] [address] [facility], Provider Not In The System, [place] [address] Social History Tobacco Use Types Packs/Day Years Used Date Smoking Tobacco: Never Assessed Comments Unknown Sex and Gender Information Value Date Recorded Sex Assigned at Not on file Legal Sex Female 7:19 PM CDT Gender Identity Not on file Sexual Orientation Not on file documented as of this encounter Plan of Treatment Upcoming Encounters Date Type Department Care Team (Late Contact Info) Description 02/09/2026 11:30 AM EDT Appointment [address] [address] documented as of this encounter Visit Diagnoses Not on filedocumented in this encounter Care Teams Traveling Buyer Relationship Specialty Start Date End Date Jose Guadalupe Jorgensen MD [address] [place] [address] PCP - General Adolescent Medicine 07/21/23 Mosoe Castro MD [address] [facility] [address] [place], [place] [id number] Hematology and Oncology 07/21/23 documented as of this encounter
[2025-04-10 16:55] VITALS: BP 171/80; PULSE 88; RESP 20; TEMP 36.8; O2SAT 98; BMI 37.1
[2025-04-10 17:00] VITALS: BP 151/86; PULSE 78; RESP 18; O2SAT 95
--- NOTE | 2025-04-10 17:13 | XR_ITS ---
PROCEDURE INFORMATION: Exam: XR Chest Exam date and time: 04/10/2025 5:16 PM Age: 69 years old Clinical indication: Chest wall pain and right-sided; Additional info: Right sided chest wall pain TECHNIQUE: Imaging protocol: Radiologic exam of the chest. Views: 2 views. COMPARISON: CR XR CHEST 2V 02/09/2022 2:44 PM FINDINGS: Lungs: Unremarkable. No consolidation. Pleural spaces: Unremarkable. No pleural effusion. No pneumothorax. Heart/Mediastinum: Unremarkable. No cardiomegaly. Bones/joints: Unremarkable. IMPRESSION: No acute findings.
[2025-04-10 17:17] LABS: Microscopic, Urine URINE MICROSCOPIC (MICROSCOPIC)
[2025-04-10 17:23] LABS: Appearance,Urine CLEAR (Clear); Bilirubin,Urine Negative (Negative); Blood, Urine Negative (Negative); Color,Urine YELLOW (Yellow); Glucose,Urine (UA) Negative (Negative); Ketones,Urine Negative (Negative); Leukocyte Esterase,Urine Negative (Negative); Nitrate,Urine Negative (Negative); PH,Urine 6.5 (5.0-8.5); Protein,Urine Negative (Negative); Urobilinogen,Urine 0.2 EU/dl (0.2)
--- NOTE | 2025-04-10 17:23 | ED_ITS ---
Discharge Plan Disposition Patient Disposition: Home, Self-Care Prescriptions Prescriptions: New prednisone 20 mg tablet 40 mg PO DAILY 5 Days Qty: 10 0RF No Action amlodipine 5 mg tablet 5 mg PO DAILY spironolactone 25 mg tablet 25 mg PO DAILY diclofenac sodium 75 mg tablet,delayed release (DR/EC) 75 mg PO BID omeprazole 20 mg capsule,delayed release(DR/EC) 20 mg PO DAILY Zyrtec 10 mg capsule 10 mg PO DAILY rosuvastatin 5 mg tablet 5 mg PO DAILY fluticasone propionate 9.9 ML spray,suspension 1 spray NS DAILY oxybutynin chloride 5 MG tablet 5 mg PO BID acetaminophen 325 MG tablet 650 mg PO Q6HP PRN (Reason: Mild To Moderate Pain) 0RF tramadol 50 MG tablet 50 - 100 mg PO Q6HP PRN (Reason: Moderate To Severe Pain) Qty: 60 0RF Referrals Follow up/Referrals: Jose Guadalupe Jorgensen MD [Primary Care Provider, Internal Medicine] - See instructions Activity Restrictions/Add. Instructions Additional Instructions/Restrictions: Call your family doctor to establish care for this visit to the emergency department and schedule follow-up within 48 hours to ensure improvement. If you have any worsening of your condition or any other concerning signs or symptoms, return to the emergency department or your primary care doctor for further evaluation. Steroid each morning for the next 5 days with plenty of food and water. Try to cycle off of diclofenac as discussed. This will also allow you to cycle off of the omeprazole for long-term kidney, stomach, heart, and bone/central nervous system health. Clinical Impressions Clinical Impression: Acute chest wall pain, Radiculopathy Print Language Print Language: Honduran Discharge ED Provider: Tip Capps General Adult HPI General Chief complaint: PAIN Stated complaint: right side back and breast pain Time Seen by Provider: 04/10/25 16:38 Mode of Arrival: Ambulatory Source of Information: Patient and Relative Description of Symptoms (Recalled from ER Triage Doc. by RN): pt is here for sharp atabbing pain under right shoulder blade that comes around the front into breast area, pt had lumpectomy 20 years ago on that same side History of Present Illness HPI narrative: Please note that above description of symptoms, in this electronic medical record under categorization of recalled from ER triage doctor by RN are reflective of an initial nursing assessment, however, is not reflective of my full history and physical exam that was personally taken and clarified. Consequentially, this preceding description of symptoms, which may include the patient's categorized chief complaint in the EMR, do not reflect my personal clinical impression, and the ultimate description of history of present illness and patient stated complaints should be deferred to this section of the note. Unless stated otherwise or congruent with this section of the note, additional signs, symptoms, or incongruence should be interpreted as inaccurate with my clinical impression. Related Data Home Medications ?Medication ?Instructions ?Recorded ?Confirmed amlodipine 5 mg tablet 5 mg PO DAILY High blood pre ssure 07/08/18 04/01/24 cetirizine 10 mg capsule (Zyrtec) 10 mg PO DAILY Aller gy symptoms 07/08/18 04/01/24 diclofenac sodium 75 mg 75 mg PO BID Pain 07/08/18 0 04/01/24 tablet,delayed release Held on 03/21/21. Instructions: Resume on 04/11/21. Hold for 2 weeks while taking Xarelto omeprazole 20 mg capsule,delayed 20 mg PO DAILY acid r eflux 07/08/18 04/01/24 release spironolactone 25 mg tablet 25 mg PO DAILY HIGH BLOOD 07/08/18 04/01/24 PRESSURE/FLUID rosuvastatin 5 mg tablet 5 mg PO DAILY Cholesterol 04/01/24 fluticasone propionate 50 1 spray intranasal DAILY all ergies 03/15/21 04/01/24 mcg/actuation nasal spray,suspension oxybutynin chloride 5 mg tablet 5 mg PO BID BLADDER 04/01/24 Previous Rx's ?Medication ?Instructions ?Recorded acetaminophen 325 mg tablet 650 mg (2 x 325 mg) PO Q6H P PRN 03/21/21 Mild To Moderate Pain tramadol 50 mg tablet 50 - 100 mg (1 - 2 x 50 mg) PO 03/21/21 Q6HP PRN Moderate To Severe Pain #60 tabs prednisone 20 mg tablet 40 mg (2 x 20 mg) PO DAILY 5 days 04/10/25 #10 tabs Allergies Allergy/AdvReac Type Severity Reaction Status Date / Time felodipine (From Plendil) Allergy nausea Verified 04/02/24 10:27 Sulfa (Sulfonamide Allergy nausea Verified 04/02/24 10:27 Antibiotics) [facility] Disclaimer: The information contained in this section may have been updated after the patient was seen, as this information can be updated by other users. Medical History Arthritis Allergies Overactive bladder GERD (gastroesophageal reflux disease) HLD (hyperlipidemia) HTN (hypertension) Surgical History History of tonsillectomy History of knee replacement Family History Other Family history of cancer Social History Smoking Status: Never smoker second hand exposure: Yes alcohol intake: never substance use type: denies use current occupational status: retired and other Travel in the last 8 weeks?: None household members: spouse housing: house current occupational exposures/hazards: No caffeine: Yes Have you lived/traveled outside US in past 30 days?: No Contact w/someone who lives/traveled outside US past 30 days?: No Exposure to someone with infectious disease in past 14 days?: No Do you have a fever (greater than 100.4 F or 38 C)?: No Have you tested positive for COVID-19?: No Exposed to someone with COVID-19 in past 14 days?: No Do you have a sore throat?: No Do you have a cough?: No Do you have any weakness?: No Do you have any diarrhea?: No Are you experiencing any unusual bleeding?: No Do you have any muscle aches/pain?: No Do you have any abdominal pain?: No Are you experiencing loss of taste or smell?: No Other Medical History Have you received the Flu Vaccine for this season: No Have you received the Pneumonia Vaccine: Yes ROS Obtained: Yes All systems reviewed & no additional complaints except as documented Physical Exam General General appearance: alert Head Head exam: atraumatic and normocephalic Eye Eye exam: Present normal appearance, PERRL and EOMI Neck Neck exam: Present normal inspection, full ROM and trachea midline Chest Chest inspection: Absent tenderness Respiratory Respiratory exam: Present normal lung sounds bilaterally; Absent respiratory distress, wheezes, stridor, accessory muscle use or prolonged expiratory phase Cardiovascular Cardiovascular exam: Present other (Pulses equal symmetric in upper and lower extremities) Abdominal Exam Abdominal exam: Present soft; Absent distention, tenderness, guarding, rebound, Soria's sign, tenderness at McBurney's Point or pulsatile mass Extremities Exam Extremities exam: Absent edema Neurological Exam Neurological exam: Present alert, oriented X3 and CN II-XII intact; Absent motor sensory deficit Skin Skin exam: Present warm and dry; Absent diaphoresis or erythema Medical Decision Making Medical Records Medical records reviewed: Yes I reviewed the patient's medical records. Screening: Per USPSTF and CDC recommendations, given the prevalence of disease in our region, it is our hospital?s policy to screen for HIV and viral Hepatitis for all patients aged 18 and over and those with ongoing risk factors. Flavio Inquiry Pt receiving controlled substance: No Flavio was queried for this patient: No Vital Signs: 04/10/25 16:55 04/10/25 17:00 04/10/25 18:09 Temperature 98.2 F Temperature Source Oral Pulse Rate 78 69 Pulse Rate [Left Radial] 88 Respiratory Rate 20 18 18 Blood Pressure 151/86 H 140/83 Blood Pressure [Right Arm] 171/80 H Blood Pressure Mean 107 100 Blood Pressure Mean [Right Arm] 110 02 Sat by Pulse Oximetry 98 95 97 Oxygen Delivery Method Room Air Lab Data Lab Results 04/10/25 16:45: Urine Color Yellow, Urine Appearance Clear, Urine pH 6.5, Ur Specific [place] 1.010, Urine Protein Negative, Urine Glucose (UA) Negative, Urine Ketones Negative, Urine Blood Negative, Urine Nitrate Negative, Urine Bilirubin Negative, Urine Urobilinogen 0.2, Ur Leukocyte Esterase Negative, Urine RBC None, Urine WBC None, Ur Squamous Epith Cells Occasional, Urine Bacteria None 04/10/25 17:28: WBC 7.1, RBC 4.59, Hgb 12.4, Hct 40.1, MCV 87.4, MCH 27.0, MCHC 30.9 L, RDW 14.2, Plt Count 385, MPV 9.4, Neut % (Auto) 43.0, Lymph % (Auto) 46.2, Island % (Auto) 9.3, Eos % (Auto) 0.7, Baso % (Auto) 0.7, Neut # (Auto) 3.1, Lymph # (Auto) 3.3, Island # (Auto) 0.7, Eos # (Auto) 0.1, Baso # (Auto) 0.1, Sodium 139, Potassium 4.1, Chloride 105, Carbon Dioxide 28, Anion Gap 10.1, BUN 11, Creatinine 0.80, Estimated Creat Clear 71, Estimated GFR 71, Est GFR ( Amer) 86, Glucose 90, Calcium 10.0, Total Bilirubin 0.6, AST 29, ALT 18, Alkaline Phosphatase 126, Total Protein 8.4 H, Albumin 4.7, Globulin 3.7 H, Albumin/Globulin Ratio 1.3, Lipase 88 04/10/25 17:28 04/10/25 17:28 Orders (Tests/Meds): ORDERS Category Date Time Status CXR 2 view (NOT portable) [XR chest 2V] Stat Exams 04/10/25 17:13 Taken POCUS Point of Care (ER Only) Stat Exams 04/10/25 17:13 Completed CBC w/Auto Diff [Complete Blood Count Auto Diff] Stat Lab 04/10/25 17:28 Completed CMP [Comprehensive Metabolic Panel] Stat Lab 04/10/25 17:28 Completed Lipase Stat Lab 04/10/25 17:28 Completed UA [Urinalysis and Microscopic] Stat Lab 04/10/25 16:45 Completed Medical Decision Narrative: 69-year-old female presenting with chest wall pain. She states that this been going on for for 5 days at this point. Starts on the right side of her chest wall radiates anteriorly and posteriorly toward her right shoulder blade and right anterior chest wall. No objective abdominal pain. She does have IBS and has a history of chronic vomiting and diarrhea, that has not changed. Patient also has a history of lumpectomy and multiple biopsies of her right breast as well as breast reduction surgery and has lots of scar tissue, unknown if this is related. No blood in her vomit or stool, nonbilious. No fevers or chills or systemic signs or symptoms. Nothing in particular makes it better or worse. She states that she had shingles a few years ago and at that time started with burning, itching followed by rash within 1 or 2 days. This does not feel the same, nor does she have a rash or any overlying skin changes. States that she talked to a family member who is a nurse senior accounting manager who recommended she come to the emergency department to be checked out to make sure it is not her gallbladder. History was obtained via conversation with patient and family. On arrival, patient hemodynamically stable, alert, oriented x4, appropriate, GCS 15, moving all extremities spontaneously, pupils equal and reactive to light. Full physical exam performed and significant for clinically well-appearing female no acute distress. No overlying skin changes. Tenderness is not made worse with application of pressure. No midline spinal tenderness, paraspinal tenderness. Normal cardiopulmonary exam with no murmurs gallops or rubs, no adventitious lung sounds or focal breath sounds. Patient's abdomen is soft, nontender, nondistended. Does not have any Soria sign, McBurney's point tenderness, overlying skin changes, etc. Unremarkable exam overall. Differential includes IBS, cholecystitis, hepatitis, dermatitis, radiculitis, radiculopathy, pancreatitis, gastritis, PUD, among others. Patient placed on continuous cardiac monitoring and continuous pulse ox with initial blood pressure 171/80, heart rate 88, saturation 98% on room air. Patient not given any inventions in the emergency department as she is currently asymptomatic. Workup independently interpreted and significant for nonactionable CBC or chemistry, lipase negative, urinalysis negative. On independent interpretation of imaging, patient has normal right upper quadrant ultrasound. See radiology read for full review of final results. On reevaluation, patient still intermittently having spasming chest wall pains that come and go on the right. Made worse with motion. Because of this I feel this is most consistent with potential radiculitis or radiculopathy. On evaluation of patient's medications, she is on daily diclofenac twice daily. This could be related to gastritis as well. Recommended she try to cycle off of the diclofenac and take it as needed, this will also allow her to be taken off the omeprazole for long-term bone density and central nervous system health. Given patient presentation, workup, history, this most likely represents radiculopathy versus radiculitis. Steroid did be sent to the pharmacy after discussion. Consider doing CT abdomen and pelvis versus CT chest to further delineate was going on. With normal labs, normal physical exam, intermittent spasming/shooting pains, shared decision making between myself, patient and family landed on patient opting out of CT scan after thorough discussion of risks and benefits. I feel this is appropriate. Because patient at baseline without signs or symptoms of clinical decompensation, deemed appropriate for discharge. Results were relayed to patient who voiced understanding and were agreeable to outpatient management and follow up. I discussed my clinical impression with patient and answered all questions. At this time, the evidence for any other entities in the differential is insufficient to warrant any further testing or ED observation. This was explained as well. Advisory was given that persistent or worsening symptoms require further evaluation. I confirmed the understanding of this discussion. Dye Stand Loader disclaimer Much of this encounter note is an electronic insole and outsole preparer spoken language to printed text. Electronic insole and outsole preparer of the spoken language may permit errors. Although I have reviewed the note, some errors may still exist. Procedures Limited Ultrasound Indication:: Limited RUQ ultrasound Indication: Right upper quadrant versus right lower chest wall pain to right shoulder Identified structures: -Gallbladder -Gallbladder wall -Common bile duct -Liver Findings: Sonographic Soria sign: Absent Gallstones: Absent Sludge: Absent Pericholecystic fluid: Absent Maximal GB wall thickness (mm) (normal is </= 3mm): Normal Common bile duct width (mm) (normal is </= 6mm): Normal Gallbladder width (cm) (normal is < 4cm): Normal Gallbladder length (cm) (normal is < 10cm): Normal Impression: Normal gallbladder other than small polyp. Images were saved to permanent archive The study was technically adequate CPT 12873-07 This study was performed by me, and I personally interpreted all images/videos. Based on my clinical judgement, these images were adequate and did not necessitate further imaging. Critical Care Critical Care Time Critical Care Time: No
[2025-04-10 17:34] LABS: Squamous Epithelial Cell,Urine Occasional #/hpf (0-5)
[2025-04-10 17:40] LABS: Basophils # 0.1 K/mm3 (0-0.2); Basophils % 0.7 % (0.1-2.0); Eosinophils # 0.1 Kmm3 (0.0-0.4); Eosinophils % 0.7 % (0.1-12.0); Hematocrit 40.1 % (37.0-47.0); Hemoglobin 12.4 g/dL (12.2-16.2); Immature Granulocytes # 0.01 10^3uL; Immature Granulocytes % 0.1 %; Lymphocytes # 3.3 K/mm3 (0.7-4.5); Lymphocytes % 46.2 % (10-50); Mean Corpuscular HGB Conc 30.9 g/dL (31.8-35.4); Mean Corpuscular Volume 87.4 fl (81-99); Mean Platelet Volume 9.4 fl (7.4-10.4); Monocytes # 0.7 K/mm3 (0.1-1.0); Monocytes % 9.3 % (1.7-9.3); Neutrophils # 3.1 K/mm3 (1.8-7.8); Nucleated Red Blood Cells # 0 10^3/uL; Nucleated Red Blood Cells % 0 %; Platelet Count 385 K/mm3 (142-424); Red Blood Count 4.59 M/mm3 (4.20-5.40); Red Cell Distribution Width 14.2 % (11.5-17.5); Red Cell Distribution Width-SD 45.2 fL; White Blood Count 7.1 K/mm3 (4.8-10.8)
[2025-04-10 17:43] LABS: Albumin Level 4.7 g/dl (3.5-5.0); Chloride 105 mmol/L (98-107); Potassium 4.1 mmoL/L (3.5-5.1); Sodium 139 mmol/L (136-145)
[2025-04-10 17:46] LABS: Alanine Aminotransferase 18 U/L (12-78); Albumin/Globulin Ratio 1.3 (1.1-1.8); Alkaline Phosphatase 126 U/L (38-126); Anion Gap 10.1 mEq/L (5-15); Aspartate Amino Transferase 29 U/L (14-36); Bilirubin,Total 0.6 mg/dl (0.2-1.3); Blood Urea Nitrogen 11 mg/dl (7-17); Carbon Dioxide 28 mmol/L (22.0-30.0); Creatinine Clearance Estimated 71 mL/min (50-200); Estimated Glomerular Filt Rate 71 ml/min (>60); GFR (African American) 86 ML/MIN (>60); Globulin 3.7 g/dL (1.3-3.2); Lipase 88 U/L (23-300); Total Protein,Serum 8.4 g/dl (6.3-8.2)
[2025-04-10 17:47] LABS: Glucose 90 mg/dl (74-100)
[2025-04-10 18:09] VITALS: BP 140/83; PULSE 69; RESP 18; O2SAT 97
[2025-04-10 18:44] VITALS: BP 143/80; PULSE 68; RESP 18; TEMP 36.8; O2SAT 98
== END 2025-04-10 18:48 | disposition home or self-care (01) ==
PROVIDERS: Emergency Provider Emergency Medicine; PCP Internal Medicine Adolescent Medicine
DX: R07.89 Other chest pain (principal); M54.10 Radiculopathy, site unspecified
CPT/HCPCS: 71046; 80053; 81001; 83690; 85025; 99284

== ENCOUNTER 2025-05-17 10:42 | Outpatient (CLI) | payer MEDICARE, OTHER, SELFPAY ==
--- OUTSIDE RECORDS SUMMARY | 2025-05-17 10:46 | XMS_ITS | Referral Summary ---
Author Organization [employer] ([place], [place], [place], [place]) Address [address] [place] [address] Care Team Providers Care Tool Engine Lathe Set Up Operator Name Role Phone Jose Guadalupe Jorgensen MD Primary Care Provider + [phone] Moose Castro MD Unavailable [phone] Social History Tobacco Use Types Packs/Day Years Used Date Smoking Tobacco: Never Assessed Family and Community Support Answer Gildardo e Recorded Help with Day to Day Activities Not on file 11/14/2023 Feeling Lonely or Isolated Not on file 11/14 Educational Attainment Answer Date Channing rded Speak language other than Nepali at home Not on file 11/14/2023 Want help with school or training Not on file 11/14/2023 Substance Use Answer Date Recorded Used [...] Info) Description 02/09/2026 11:30 AM EDT Appointment [address] [address] Procedures Procedure Name Priority Date/Time Associated Diagnosis Comments MM DIGITAL MAMMO SCREEN WITH RALPH BILATERAL Routine 02/03/2025 11:22 AM EDT Visit for screening mammogram from Last 3 Months or Most Recently Relevant to Health Maintenance Results * MM digital mammo screen with [...] F inal Result from Last 3 Months or Most Recently Relevant to Health Maintenance Insurance MEDICARE [place] [address] [place] [address] SUPP Care Teams Tool Engine Lathe Set Up Operator Relationship Specialty Start Date End Date Jose Guadalupe Jorgensen MD [address] [place] [address] PCP - General Adolescent Medicine 07/21/23 Moose Castro MD [address] [facility] [address] [place] [address] Hematology and Oncology 07/21/23
--- OUTSIDE RECORDS SUMMARY | 2025-05-17 10:46 | XMS_ITS | Encounter Summary ---
Author Organization [employer] ([place], [place], [place], [place]) Address [address] [place] [address] Care Team Providers Care Transitional Care Nurse Name Role Phone Jose Guadalupe Jorgensen MD Primary Care Provider + [phone] Moose Castro MD Unavailable [phone] Reason for Referral * Mammography (Routine) - Closed Specialty Diagnoses / Procedures Referred By Robson tobar Referred To Contact Diagnoses Abnormal mammogram Procedures MM digital mammo diagnostic with tito right Michelle Franco MD [address] [place] [address] Phone: tel: fax: Referral ID Status Reason Start Date Expiration Date Visits Re quested Visits Authorized [id number] Closed 01/15/2023 07/14/2023 1 1 * Ultrasound (Routine) - Closed Specialty Diagnoses / Procedures Referred By Robson tobar Referred To Contact Diagnoses Abnormal mammogram Procedures US BREAST RIGHT LIMITED Michelle Franco MD [address] [address] Phone: tel: fax: Referral ID Status Reason Start Date Expiration Date Visits Re quested Visits Authorized [id number] Closed 07/21/2023 01/17/2024 1 1 Encounter Details Date Type Department Care Team (Late st Contact Info) Description 01/15/2023 Outside Orders [facility] [address] [place] [address] Michelle Franco MD [address] [facility] [address] [place], [place] [id number] Abnormal mammogram (Primary Dx) Social History Tobacco [...] Info) Description 02/09/2026 11:30 AM EDT Appointment [facility] [address] [facility] [address] [place] [address] documented as of this encounter [...] in December 2023 At our facility, a kiana marker is positioned over a visible skin [...] family history of breast cancer COMPARISON STUDY: [facility] December 2022, November 2021 FINDINGS: Single spot [...] in December 2023 At our facility, a kiana marker is positioned over a visible skin [...] family history of breast cancer COMPARISON STUDY: [facility] December 2022, November 2021 FINDINGS: Single spot [...] unspecified documented in this encounter Care Teams Transitional Care Nurse Relationship Specialty Start Date End Date Jose Guadalupe Jorgensen MD [address] [place] [address] PCP - General Adolescent Medicine 07/21/23 Moose Castro MD [address] [facility] [address] [place] [address] Hematology and Oncology 07/21/23 documented as of this encounter
--- OUTSIDE RECORDS SUMMARY | 2025-05-17 10:47 | XMS_ITS | Encounter Summary ---
Author Organization [employer] ([place], [place], [place], [place]) Address [address] [place] [address] Care Team Providers Care Customer Success Associate Name Role Phone Jose Guadalupe Jorgensen MD Primary Care Provider + [phone] Moose Castro MD Unavailable [phone] Encounter Details Date Type Department Care Team (Late Contact Info) Description 07/17/2023 Outside Orders [facility] [address] [facility] [address] [place] [address] [facility], Provider Not In The System, [place] [address] Social History Tobacco Use Types Packs/Day Years Used Date Smoking Tobacco: Never Assessed Family and Community Support Answer Gildardo e Recorded Help with Day to Day Activities Not on file 11/14/2023 Feeling Lonely or Isolated Not on file 11/14 Educational Attainment Answer Date Channing rded Speak language other than Swiss at home Not on file 11/14/2023 Want [...] Info) Description 02/09/2026 11:30 AM EDT Appointment [facility] [address] [facility] [address] [place] [address] documented as of this encounter Visit Diagnoses Not on filedocumented in this encounter Care Teams Customer Success Associate Relationship Specialty Start Date End Date Jose Guadalupe Jorgensen MD [address] [place] [address] PCP - General Adolescent Medicine 07/21/23 Moose Castro MD [address] [facility] [address] [place], [place] [id number] Hematology and Oncology 07/21/23 documented as of this encounter
--- OUTSIDE RECORDS SUMMARY | 2025-05-17 10:47 | XMS_ITS | Clinical Summary ---
Author Organization Healthcare Address [address] [place] [address] Care Team Providers Care Titrator Name Role Phone Unavailable Primary Care Provider Unavailabl e Social History Tobacco Use Types Packs/Day Years Used Date Smoking Tobacco: Never Assessed Comments Unknown Sex and Gender Information Value Date Recorded Sex Assigned at Not on file Legal Sex Female 7:53 PM EDT Gender Identity Not on file Sexual Orientation Not on file Plan of Treatment Health Maintenance Due Date Last Done Comments [facility]-Bone Density Scan 1956 [facility]-Depression Screening 1956 [facility]-/Child/Adol SDOH Screenings 1956 [facility]- SDOH Screenings 1974 [facility]-Adult SDOH Screenings 1974 [facility]-DTaP,Tdap,and Td Vaccine s (1 - Tdap) 1975 CT Colonography 2001 Colonoscopy 2001 FIT-DNA 2001 FIT 2001 FOBT 2001 Sigmoidoscopy 2001 [facility]-Colorectal Cancer Screening 2001 [facility]-Pneumococcal Vaccine: 50 + Years (1 of 1 - PCV) 2006 [facility]-Zoster Vaccines (1 of 2) 2006 [id number] Vaccine (1 - 20 24-25 season) 2024 [facility]-Influenza Vaccine (#1) 2025 [facility]-RSV Vaccine: 60+ Years o r (1 - 1-dose 75+ series) 2031 HPV [...]
--- OUTSIDE RECORDS SUMMARY | 2025-05-17 10:47 | XMS_ITS | Clinical Summary ---
Author Organization [employer] ([place], [place], [place], [place]) Address [address] [place] [address] Care Team Providers Care Savings Counselor Name Role Phone Jose Guadalupe Jorgensen MD Primary Care Provider + [phone] Moose Castro MD Unavailable [phone] Social History Tobacco Use Types Packs/Day Years Used Date Smoking Tobacco: Never Assessed Family and Community Support Answer Gildardo e Recorded Help with Day to Day Activities Not on file 11/14/2023 Feeling Lonely or Isolated Not on file 11/14 Educational Attainment Answer Date Channing rded Speak language other than Latvian at home Not on file 11/14/2023 Want [...] Info) Description 02/09/2026 11:30 AM EDT Appointment [address] [address] Health Maintenance Due Date Last [...] 12/27/2020 Falls Risk Screening 10/27/2024 Influenza Vaccine (#1) 2025 Breast Cancer Screening 02/03/2027 02/04/20, 01/22/2024, [...] Health Maintenance Insurance MEDICARE PART A B [facility] Care Teams Savings Counselor Relationship Specialty Start Date End Date Jose Guadalupe Jorgensen MD [address] [place] [address] PCP - General Adolescent Medicine 07/21/23 Moose Castro MD [address] [facility] [place] [address] Hematology and Oncology 07/21/23
--- NOTE | 2025-05-17 10:49 | XR_ITS ---
FINAL REPORT CLINICAL HISTORY: ACUTE RT-ANKLE PAIN FINDINGS: RIGHT ANKLE 3 views of the right ankle were obtained. There is no acute fracture or dislocation. There are moderate degenerative changes. Mild calcaneal spurring is seen. The mortise is intact. Visualized joint spaces are normally aligned. There is diffuse soft tissue swelling. IMPRESSION: No acute bony abnormality. Reviewed, Interpreted and Dictated by Kamari Vaughn MD Transcribed by Charissa Arzate Authenticated and [facility]
[2025-05-17 11:24] LABS: Hematocrit 38.9 % (37.0-47.0); Hemoglobin 12.0 g/dL (12.2-16.2); Immature Granulocytes % 0.2 %; Mean Corpuscular HGB Conc 30.8 g/dL (31.8-35.4); Mean Corpuscular Hemoglobin 26.9 pg (27.0-31.2); Mean Corpuscular Volume 87.2 fl (81-99); Nucleated Red Blood Cells % 0 %; Platelet Count 384 K/mm3 (142-424); Red Blood Count 4.46 M/mm3 (4.20-5.40); Red Cell Distribution Width-SD 45.0 fL; White Blood Count 5.2 K/mm3 (4.8-10.8)
[2025-05-17 12:00] LABS: Alanine Aminotransferase 14 U/L (12-78); Albumin Level 4.2 g/dl (3.5-5.0); Albumin/Globulin Ratio 1.6 (1.1-1.8); Alkaline Phosphatase 107 U/L (38-126); Anion Gap 10.2 mEq/L (5-15); Aspartate Amino Transferase 24 U/L (14-36); Bilirubin,Total 0.7 mg/dl (0.2-1.3); Blood Urea Nitrogen 9 mg/dl (7-17); Calcium 10.2 mg/dl (8.4-10.2); Carbon Dioxide 28 mmol/L (22.0-30.0); Chloride 105 mmol/L (98-107); Creatinine,Serum 0.60 mg/dl (0.52-1.04); Estimated Glomerular Filt Rate 99 ml/min (>60); GFR (African American) 120 ML/MIN (>60); Globulin 2.7 g/dL (1.3-3.2); Glucose 100 mg/dl (74-100); Potassium 4.2 mmoL/L (3.5-5.1); Sodium 139 mmol/L (136-145); Total Protein,Serum 6.9 g/dl (6.3-8.2); Uric Acid 3.0 mg/dl (2.5-6.2)
[2025-05-17 12:05] LABS: C-Reactive Protein 7.4 mg/L (0-4)
[2025-05-18 08:13] LABS: RA Latex Turbid. 12.1 IU/mL (<14.0)
[2025-05-20 13:14] LABS: Anti-CCP Abs,IgG and IgA (RDL) < 20 Units (<20)
== END 2025-05-17 23:59 | disposition home or self-care (01) ==
PROVIDERS: PCP Nurse Practitioner Family; Visit Provider Nurse Practitioner Family
DX: M25.571 Pain in right ankle and joints of right foot (principal); M25.471 Effusion, right ankle
CPT/HCPCS: 36415; 73610; 80053; 84550; 85025; 85651; 86140; 86200; 86431